=== PATIENT | male | born 1975 | race American Indian/Alaskan Native ===

== ENCOUNTER 2020-05-07 06:15 | Observation (INO) | payer OTHER ==
--- NOTE | 2020-05-07 08:08 | Emergency Department Report ---
ED Male HPI - General Chief complaint: Urogenital-Male Time Seen by Provider: 05/07/20 08:05 Source: patient Mode of arrival: Ambulatory Limitations: No Limitations - History of Present Illness Initial comments: Patient is a 45-year-old obese -Filipino male who comes to the ER complaining of testicular pain. He states that he has had this for several days but thought that it was just swelling and it would go down. He denies any penile discharge or dysuria. He has no back pain or abdominal pain. No nausea vomiting or diarrhea. Patient states that he has never had this before. He has taken [id number] medications at home with no relief. The pain is a constant dull sensation in his scrotum. Patient denies any trauma. Patient has no hypotension, tachycardia or fever. MD Complaint: testicle swelling -: Gradual, days(s) Radiation: none Severity: moderate Consistency: constant Worsens with: none denies other symptoms - Related Data Previous Rx's Medication Instructions Recorded Last Taken Type Ibuprofen [Motrin 800 MG tab] 800 mg PO Q8H #45 tablet 05/07/20 Unknown Rx cephALEXin [Keflex] 500 mg PO Q6H #28 cap 05/07/20 Unknown Rx Allergies Allergy/AdvReac Type Severity Reaction Status Date / Time No Known Allergies Allergy Verified 06/20/13 10:54 ED Review of Systems ROS: Stated complaint: Other details as noted in HPI Comment: All other systems reviewed and negative ED Past Medical Hx - Past Medical History Previous Medical History?: Yes Hx Hypertension: Yes Hx Asthma: Yes Additional medical history: Tetanus status 2 years - Surgical History Past Surgical History?: Yes Additional Surgical History: hernia repair - Family History Family history: no significant - Social History Smoking Status: Never Smoker Substance Use Type: None - Medications Home Medications: Home Medications Medication Instructions Recorded Confirmed Last Taken Type Ibuprofen [Motrin 800 MG tab] 800 mg PO Q8H #45 tablet 05/07/20 Unknown Rx cephALEXin [Keflex] 500 mg PO Q6H #28 cap 05/07/20 Unknown Rx ED Physical Exam - General Limitations: No Limitations General appearance: alert, in no apparent distress - Head Head exam: Present: atraumatic, normocephalic - Eye Eye exam: Present: normal appearance - ENT ENT exam: Present: mucous membranes moist - Neck Neck exam: Present: normal inspection - Respiratory Respiratory exam: Present: normal lung sounds bilaterally. Absent: respiratory distress - Cardiovascular Cardiovascular Exam: Present: regular rate, normal rhythm, other (Heart rate on provider exam 90, patient morbidly obese this is probably a normal heart rate for him. He has no fever). Absent: systolic murmur, diastolic murmur, rubs, gallop - GI/Abdominal GI/Abdominal exam: Present: soft, normal bowel sounds - Rectal Rectal exam: Present: deferred - exam: Present: scrotal swelling. Absent: urethral discharge, vertical testicular lie External exam: Present: erythema, swelling, other (No abscess). Absent: lesions, lacerations, ecchymosis, bleeding - Extremities Exam Extremities exam: Present: normal inspection - Back Exam Back exam: Present: normal inspection - Neurological Exam Neurological exam: Present: alert, oriented X3 - Psychiatric Psychiatric exam: Present: normal affect, normal mood - Skin Skin exam: Present: warm, dry, intact, normal color. Absent: rash ED Course Vital Signs 05/07/20 06:17 Temperature 98.2 F Pulse Rate 105 H Respiratory 20 Rate Blood Pressure 182/97 [Right] O2 Sat by Pulse 96 Oximetry ED Medical Decision Making - Radiology Data Radiology results: report reviewed, image reviewed Ultrasound negative for torsion - Medical Decision Making Ultrasound noted. On exam scrotum is enlarged. Skin is thickened. It is edematous. There are no lesions. There is no penile discharge. There is no abscess or area of flatulence. Patient was medicated with IM Rocephin. Patient has no bilateral lower extremity edema. He has no JVD. He has no history of cardiac disease. He denies chest pain. Patient denies any abdominal pain or dysuria. He denies any back pain. He denies any penile discharge or concern for STI. Patient was educated on discharge plan of care including medications, activity diet and follow-up. He verbalizes understanding of the need to follow-up given the location of cellulitis. Patient has been encouraged to work on his weight for a feel that this is part of the reason why he is having cellulitis in his periarea. Patient is morbidly obese. Lab Results 05/07/20 Range/Units Unknown Urine Color Straw (Yellow) Urine Turbidity Clear (Clear) Urine pH 6.0 (5.0-7.0) Ur Specific [place] 1.006 (1.003-1.030) Urine Protein 100 mg/dl (Negative) mg/dL Urine Glucose (UA) Neg (Negative) mg/dL Urine Ketones Neg (Negative) mg/dL Urine Blood Neg (Negative) Urine Nitrite Neg (Negative) Urine Bilirubin Neg (Negative) Urine Urobilinogen < 2.0 (<2.0) mg/dL Ur Leukocyte Esterase Neg (Negative) Urine WBC (Auto) < 1.0 (0.0-6.0) /HPF Urine RBC (Auto) 1.0 (0.0-6.0) /HPF Vital Signs 05/07/20 06:17 Temperature 98.2 F Pulse Rate 105 H Respiratory 20 Rate Blood Pressure 182/97 [Right] O2 Sat by Pulse 96 Oximetry - Differential Diagnosis Rule out testicular torsion or other testicular abnormalities Critical care attestation.: If time is entered above; I have spent that time in minutes in the direct care of this critically ill patient, excluding procedure time. ED Disposition Clinical Impression: Cellulitis of scrotum, Morbid obesity Disposition: TO HOME OR SELFCARE Is pt being admited?: No Does the pt Need Aspirin: No Condition: Stable Instructions: Cellulitis, Adult, [id number], Testicular Self-Exam, [id number] Additional Instructions: meds as ordered low salt and fat diet hydrate well with water motrin or tylenol for pain follow up with PCP for recheck in 48 hours to be sure you are getting better activity as tolerated Prescriptions: cephALEXin [Keflex] 500 mg PO Q6H #28 cap Ibuprofen [Motrin 800 MG tab] 800 mg PO Q8H #45 tablet Referrals: [facility] [Other] - 3-5 Days ANDREI GRAVES MD [Staff Physician] - 3-5 Days Time of Disposition: 09:48
[2020-05-07 08:40] LABS: Bilirubin,Urine NEG (Negative); Blood,Urine NEG (Negative); Color,Urine Straw (Yellow); Urobilinogen,Urine < 2.0 mg/dL (<2.0); WBC,Urine < 1.0 /HPF (0.0-6.0)
--- NOTE | 2020-05-07 09:44 | Ultrasound Report ---
ULTRASOUND SCROTUM INDICATION / CLINICAL INFORMATION: scrotal pain. COMPARISON: None available. FINDINGS -- RIGHT TESTIS: Size = 4.9 x 3.2 x 3.0 cm. - Appearance: No significant abnormality. - Cyst or Mass: None. - Color Doppler Flow: No significant abnormality. EPIDIDYMIS: No significant abnormality. HYDROCELE: Small right hydrocele. VARICOCELE: None demonstrated. FINDINGS -- LEFT TESTIS: Size = 4.2 x 2.7 x 2.8 cm. - Appearance: No significant abnormality. - Cyst or Mass: None. - Color Doppler Flow: No significant abnormality. EPIDIDYMIS: No significant abnormality. HYDROCELE: None. VARICOCELE: None demonstrated. ADDITIONAL FINDINGS: There is significant thickening and edema noted of the scrotal soft tissues with mild hyperemia. No focal abscess noted. IMPRESSION: 1. Infectious/inflammatory changes of the scrotal soft tissues consistent with cellulitis. 2. Small right hydrocele. Signer Name: Hank Bradley MD Signed: 05/07/2020 9:40 AM Workstation Name: [id number]
[2020-05-07] MEDS ORDERED: LIDOCAINE-MPF (1%) 10 MG/1 ML VIAL 5 ML INFILTRATI ONE (09:45)
[2020-05-07] MEDS ORDERED: traMADol 50 MG TAB PO ONE (09:51)
[2020-05-07 11:16] VITALS: BP 168/105
--- NOTE | 2020-05-07 11:27 | XRay Report ---
CHEST 2 VIEWS INDICATION / CLINICAL INFORMATION: sob. COMPARISON: None available. FINDINGS: SUPPORT DEVICES: None. HEART / MEDIASTINUM: Moderately enlarged LUNGS / PLEURA: Mild increased interstitial markings No pneumothorax. ADDITIONAL FINDINGS: No significant additional findings. IMPRESSION: 1. Mild CHF Signer Name: Eb Casas MD Signed: 05/07/2020 11:22 AM Workstation Name: [id number]
[2020-05-07] MEDS ORDERED: FUROSEMIDE 20 MG TAB PO ONE (11:30)
--- NOTE | 2020-05-07 11:31 | Event Note ---
Date: 05/07/20 ADDENDUM On obtaining discharge vital signs patient sat was noted to be in the high 70s. At the time patient was sitting upright at the side of the bed. He denied any chest pain or shortness of breath. Patient states that he has not had any chest pain. He states that he has some shortness of breath but he said that anybody 1 that was 400 pounds, this is per the patient. Patient denies any recent chills or shortness of breath. He denies abdominal pain. Denies nausea vomiting diarrhea. Patient denies that his legs are swollen he said that they always look like this. Patient is 400 pounds and his legs are large to me it looks like he has some pitting edema but patient says this is baseline. 6 ft 400 pounds per pt Patient is morbidly obese and has asthma. His asthma has been well controlled in fact per the patient has not been giving him any problems. Patient denies a history of sleep apnea. Patient takes no medications at home. He denies any cardiac history. He denies any use of illicit drugs. Mother and father are alive without cardiac disease. Patient states he has never been told that he had any problems with his heart. Per the EMR patient has hypertension but patient denies this. He has no primary care doctor. He denies any surgeries. X-ray was obtained and labs were ordered given hypoxia. X-ray noted to be without consolidation or infiltrate suggestive of pneumonia or Covid. Per radiology read they are concerned for mild congestive heart failure. Labs have been noted. BNP elevated. Creatinine 1.2 Serial 12 leads and troponins ordered. Thyroid study pending. Patient was given 20 of p.o. Lasix with no urine output. Creatinine 1.2. Given no response to the p.o. Lasix, and there is Lasix nohelia patient I am repeating his Lasix 40 mg IV x1. A repeat B MP has been ordered to evaluate his potassium which resulted at 5.3 1350 SAT by provider 82 NC ordered. DuoNeb provided. Patient has minimal bibasilar wheezing. 1400 cardiology paged-noted cardiology recommends inpatient evaluation for new onset heart failure. Recommend echocardiogram. Pt has been updated on need for admit. [address] Reza [address] Dr. Umaña contacted for hospital admission for new onset CHF and ongoing antibiotics for his sacral cellulitis (see ultrasound report).
[2020-05-07 13:03] LABS: Mean Corpuscular HGB Conc 29 % (32-34); Mean Corpuscular Volume 76 fl (84-94); Platelet Count 241 K/mm3 (140-440); Red Blood Count 7.22 M/mm3 (3.65-5.03)
[2020-05-07 13:05] LABS: Red Cell Distribution Width 21.2 % (13.2-15.2)
[2020-05-07 13:26] LABS: Alanine Aminotransferase 45 units/L (7-56); Albumin 3.1 g/dL (3.9-5); BUN/Creatinine Ratio 15; Blood Urea Nitrogen 18 mg/dL (9-20); Calcium 8.8 mg/dL (8.4-10.2); Hemolysis Index 14
[2020-05-07] MEDS ORDERED: ALBUTEROL 2.5 MG/3 ML NEBU IH ONE (13:37)
[2020-05-07] MEDS ORDERED: FUROSEMIDE 40 MG/4 ML INJ IV ONE (14:08)
[2020-05-07] MEDS ORDERED: ASPIRIN 325 MG TAB PO ONE (14:28)
[2020-05-07 15:19] LABS: BUN/Creatinine Ratio 15; Blood Urea Nitrogen 20 mg/dL (9-20); Calcium 8.4 mg/dL (8.4-10.2); Hemolysis Index 83
[2020-05-07] MEDS ORDERED: ASPIRIN 325 MG TAB ONE (18:20)
== END 2020-05-07 20:44 | disposition short-term general hospital (02) ==
LOC: ED 06:15 → 4A 14:31
PROVIDERS: ADMIT Internal Medicine; ATTEND Internal Medicine
DX: N49.2 Inflammatory disorders of scrotum (principal); E66.01 Morbid (severe) obesity due to excess calories; I11.0 Hypertensive heart disease with heart failure; I50.9 Heart failure, unspecified; J45.909 Unspecified asthma, uncomplicated; R09.02 Hypoxemia; Z98.890 Other specified postprocedural states; Z79.899 Other long term (current) drug therapy; Z68.43 Body mass index [BMI] 50.0-59.9, adult
CPT/HCPCS: 36415; 71046; 80053; 81001; 83735; 83880; 84100; 84436; 84443; 84484; 85027; 85379; 93005; 93975; 96372; 96374; 99284; G0378; J0696; J1940; 80048

== ENCOUNTER 2020-05-25 17:05 | Inpatient (IN) | payer OTHER ==
--- NOTE | 2020-05-25 17:28 | Emergency Department Report ---
Blank Doc - Documentation Documentation: 45-year-old male that presents with worsening SOB. This initial assessment/diagnostic orders/clinical plan/treatment(s) is/are subject to change based on patient's health status, clinical progression and re- assessment by fellow clinical providers in the ED. Further treatment and workup at subsequent clinical providers discretion. Patient/guardians urged not to elope from the ED as their condition may be serious if not clinically assessed and managed. Initial orders include: 1- Patient sent to MAIN ED for further evaluation and treatment 2- patient placed on nonbreather 10L 3- cardiac workup
--- NOTE | 2020-05-25 18:11 | XRay Report ---
CHEST 2 VIEWS INDICATION / CLINICAL INFORMATION: Chest pain. COMPARISON: 05/07/2020 FINDINGS: SUPPORT DEVICES: None. HEART / MEDIASTINUM: Stable mild cardiomegaly. LUNGS / PLEURA: Mild interstitial edema. No significant effusion. No pneumothorax. ADDITIONAL FINDINGS: No significant additional findings. IMPRESSION: 1. Mild cardiomegaly and mild interstitial pulmonary edema. Signer Name: Raúl Valdivia MD Signed: 05/25/2020 6:07 PM Workstation Name: [id number]
[2020-05-25 18:30] LABS: Basophils # (Auto) 0.1 K/mm3 (0.0-0.1); Basophils % (Auto) 0.8 % (0.0-1.8); Eosinophils # (Auto) 0.1 K/mm3 (0.0-0.4); Eosinophils % (Auto) 1.1 % (0.0-4.3); Lymphocytes # (Auto) 0.9 K/mm3 (1.2-5.4); Mean Corpuscular HGB Conc 29 % (32-34); Mean Corpuscular Volume 78 fl (84-94); Monocytes # (Auto) 0.9 K/mm3 (0.0-0.8); Monocytes % (Auto) 12.2 % (0.0-7.3); Platelet Count 416 K/mm3 (140-440); Red Blood Count 6.27 M/mm3 (3.65-5.03)
[2020-05-25 18:32] LABS: Alanine Aminotransferase 28 units/L (7-56); BUN/Creatinine Ratio 18; Blood Urea Nitrogen 16 mg/dL (9-20); Calcium 8.1 mg/dL (8.4-10.2); Hemolysis Index 6
[2020-05-25 18:37] LABS: Hematocrit 48.9 % (35.5-45.6); Hemoglobin 14.3 gm/dl (11.8-15.2); Red Cell Distribution Width 22.9 % (13.2-15.2)
[2020-05-25 18:44] LABS: INR 1.08 (0.87-1.13)
[2020-05-25 18:45] LABS: Partial Thromboplastin Time 26.3 Sec. (24.2-36.6)
--- NOTE | 2020-05-26 00:57 | Emergency Department Report ---
ED General Adult HPI - General Chief complaint: Dyspnea/Respdistress Stated complaint: LAZARA/SOB Time Seen by Provider: 05/25/20 17:27 Source: patient Mode of arrival: Ambulatory Limitations: No Limitations - History of Present Illness Initial comments: Patient presents to the emergency department with a chief complaint of shortness of breath that has been present for the last 2 weeks. Patient states he was recently hospitalized at [facility] for fluid overload was placed on Lasix. Patient complains of a increase shortness of breath with exertion or when laying flat. Upon the patient's arrival to the emergency department his O2 sats was 74% on room air. O2 sats are responsive to nonrebreather with O2 sats increasing to 100%. Patient states he has had a significant weight gain in the last week due to increased fluid. Patient denies chest pain, abdominal pain, or headache. -: Gradual Severity scale (0 -10): 0 Consistency: constant Improves with: rest Worsens with: movement Associated Symptoms: denies other symptoms Treatments Prior to Arrival: none - Related Data Allergies Allergy/AdvReac Type Severity Reaction Status Date / Time No Known Allergies Allergy Verified 06/20/13 10:54 ED Review of Systems ROS: Stated complaint: LAZARA/SOB Other details as noted in HPI Constitutional: denies: chills, fever Eyes: denies: eye pain, eye discharge, vision change ENT: denies: ear pain, throat pain Respiratory: shortness of breath. denies: cough, wheezing Cardiovascular: denies: chest pain, palpitations Endocrine: no symptoms reported Gastrointestinal: denies: abdominal pain, nausea, diarrhea Genitourinary: denies: urgency, dysuria Musculoskeletal: denies: back pain, joint swelling, arthralgia Skin: denies: rash, lesions Neurological: denies: headache, weakness, paresthesias Psychiatric: denies: anxiety, depression Hematological/Lymphatic: denies: easy bleeding, easy bruising ED Past Medical Hx - Past Medical History Previous Medical History?: Yes Hx Hypertension: Yes Hx Asthma: Yes Additional medical history: Tetanus status 2 years - Surgical History Additional Surgical History: hernia repair - Social History Smoking Status: Never Smoker Substance Use Type: None ED Physical Exam - General Limitations: No Limitations General appearance: alert, in no apparent distress - Head Head exam: Present: atraumatic, normocephalic - Eye Eye exam: Present: normal appearance - ENT ENT exam: Present: mucous membranes moist - Neck Neck exam: Present: normal inspection - Respiratory Respiratory exam: Present: rales. Absent: respiratory distress - Cardiovascular Cardiovascular Exam: Present: normal rhythm, tachycardia. Absent: systolic murmur, diastolic murmur, rubs, gallop - GI/Abdominal GI/Abdominal exam: Present: soft, normal bowel sounds. Absent: distended, tenderness - Rectal Rectal exam: Present: deferred - Extremities Exam Extremities exam: Present: other (Pitting edema to the bilateral lower extremities) - Back Exam Back exam: Present: normal inspection - Neurological Exam Neurological exam: Present: alert, oriented X3 - Psychiatric Psychiatric exam: Present: normal affect, normal mood - Skin Skin exam: Present: warm, dry, intact, normal color. Absent: rash ED Course Vital Signs 05/25/20 05/25/20 05/26/20 17:10 17:25 00:13 Temperature 98.6 F 98.7 F Pulse Rate 108 H 110 H Respiratory 20 22 Rate Blood Pressure 174/92 Blood Pressure 152/84 [Right] O2 Sat by Pulse 74 L 97 72 L Oximetry ED Medical Decision Making - Lab Data Result diagrams: 05/25/20 17:38 05/25/20 17:38 Lab Results 05/25/20 05/25/20 05/25/20 Range/Units 17:38 17:38 17:38 WBC 7.5 (4.5-11.0) K/mm3 RBC 6.27 H (3.65-5.03) M/mm3 Hgb 14.3 (11.8-15.2) gm/dl Hct 48.9 H (35.5-45.6) % MCV 78 L (84-94) fl MCH 23 L (28-32) pg MCHC 29 L (32-34) % RDW 22.9 H (13.2-15.2) % Plt Count 416 (140-440) K/mm3 Lymph % (Auto) 12.0 L (13.4-35.0) % [place] % (Auto) 12.2 H (0.0-7.3) % Eos % (Auto) 1.1 (0.0-4.3) % Baso % (Auto) 0.8 (0.0-1.8) % Lymph # (Auto) 0.9 L (1.2-5.4) K/mm3 [place] # (Auto) 0.9 H (0.0-0.8) K/mm3 Eos # (Auto) 0.1 (0.0-0.4) K/mm3 Baso # (Auto) 0.1 (0.0-0.1) K/mm3 Seg Neutrophils % 73.9 H (40.0-70.0) % Seg Neutrophils # 5.5 (1.8-7.7) K/mm3 PT 13.9 (12.2-14.9) Sec. INR 1.08 (0.87-1.13) APTT 26.3 (24.2-36.6) Sec. Sodium 141 (137-145) mmol/L Potassium 3.8 (3.6-5.0) mmol/L Chloride 98.4 (98-107) mmol/L Carbon Dioxide 39 H (22-30) mmol/L Anion Gap 7 mmol/L BUN 16 (9-20) mg/dL Creatinine 0.9 (0.8-1.3) mg/dL Estimated GFR > 60 ml/min BUN/Creatinine Ratio 18 % Glucose 101 H (75-100) mg/dL Calcium 8.1 L (8.4-10.2) mg/dL Total Bilirubin 0.50 (0.1-1.2) mg/dL AST 23 (5-40) units/L ALT 28 (7-56) units/L Alkaline Phosphatase 85 (35-129) units/L Troponin T < 0.010 (0.00-0.029) ng/mL NT-Pro-B Natriuret Pep 1338 H (0-450) pg/mL Total Protein 5.7 L (6.3-8.2) g/dL Albumin 3.0 L (3.9-5) g/dL Albumin/Globulin Ratio 1.1 % /28/20 Range/Units 20:40 WBC (4.5-11.0) K/mm3 RBC (3.65-5.03) M/mm3 Hgb (11.8-15.2) gm/dl Hct (35.5-45.6) % MCV (84-94) fl MCH (28-32) pg MCHC (32-34) % RDW (13.2-15.2) % Plt Count (140-440) K/mm3 Lymph % (Auto) (13.4-35.0) % [place] % (Auto) (0.0-7.3) % Eos % (Auto) (0.0-4.3) % Baso % (Auto) (0.0-1.8) % Lymph # (Auto) (1.2-5.4) K/mm3 [place] # (Auto) (0.0-0.8) K/mm3 Eos # (Auto) (0.0-0.4) K/mm3 Baso # (Auto) (0.0-0.1) K/mm3 Seg Neutrophils % (40.0-70.0) % Seg Neutrophils # (1.8-7.7) K/mm3 PT (12.2-14.9) Sec. INR (0.87-1.13) APTT (24.2-36.6) Sec. Sodium (137-145) mmol/L Potassium (3.6-5.0) mmol/L Chloride (98-107) mmol/L Carbon Dioxide (22-30) mmol/L Anion Gap mmol/L BUN (9-20) mg/dL Creatinine (0.8-1.3) mg/dL Estimated GFR ml/min BUN/Creatinine Ratio % Glucose (75-100) mg/dL Calcium (8.4-10.2) mg/dL Total Bilirubin (0.1-1.2) mg/dL AST (5-40) units/L ALT (7-56) units/L Alkaline Phosphatase (35-129) units/L Troponin T < 0.010 (0.00-0.029) ng/mL NT-Pro-B Natriuret Pep (0-450) pg/mL Total Protein (6.3-8.2) g/dL Albumin (3.9-5) g/dL Albumin/Globulin Ratio % - Radiology Data Radiology results: report reviewed - Medical Decision Making Patient's O2 sats 100% on nonrebreather mask Patient given IV Lasix Contacted [facility] and spoke to emilia Lott at Critical Care Time: Yes Critical care time in (mins) excluding proc time.: 35 Critical care attestation.: If time is entered above; I have spent that time in minutes in the direct care of this critically ill patient, excluding procedure time. ED Disposition Clinical Impression: CHF (congestive heart failure), Hypoxia, Respiratory failure Disposition: OP ADMIT IP TO THIS HOSP Is pt being admited?: Yes Does the pt Need Aspirin: Yes Condition: Fair Referrals: [facility] [Other] - 3-5 Days
[2020-05-26] MEDS ORDERED: FUROSEMIDE 40 MG/4 ML INJ IV ONE (01:01)
[2020-05-26] MEDS ORDERED: PIPERACIL/TAZOBACTA 4.5/NS 100 4.5 GM/100 ML VIAL IV ONE (01:15)
[2020-05-26] MEDS ORDERED: MORPHINE 2 MG/1 ML INJ IV PRN (01:22)
[2020-05-26] MEDS ORDERED: NITROGLYCERIN 0.4 MG TAB SUBL SL PRN (01:22)
[2020-05-26] MEDS ORDERED: ALBUTEROL 2.5 MG/3 ML NEBU IH PRN (01:27)
[2020-05-26 01:29] LABS: Bilirubin,Urine NEG (Negative); Blood,Urine NEG (Negative); Color,Urine Yellow (Yellow); Hyaline Casts,Urine 14 /LPF; Mucus,Urine FEW /HPF
--- NOTE | 2020-05-26 01:57 | History and Physical Report ---
History of Present Illness Date of examination: 05/26/20 Date of admission: 05/26/2020 Chief complaint: Difficulty in breathing and generalized edema History of present illness: 45-year-old -Hungarian male recently diagnosed with CHF and history of hypertension, and asthma who presents to [facility] ED with complaints of shortness of breath and worsening lower extremity edema extending up to abdomen x3 to 4 days. This patient is a [facility] patient. Dr. Lott at [facility] was contacted by ED physician who has agreed to this admission. Review of chart shows patient presented to the ED on 05/07/2020 with complaints of testicular pain and testicular edema. He was noted to have an elevated BNP subsequently transferred to [facility] for further evaluation and treatment. Patient's reports since being discharged from [facility] approximately 1 week ago he has been experiencing worsening shortness of breath. He is unable to walk more than a few feet without becoming short of breath and needing to take a rest. Additionally patient complains of increased weight gain (he is not able to provide exact weight) since being discharged despite being compliant with meds. He states that he has a follow-up appointment with cardiology at [facility] sche duled for 06/02/2020. His symptoms were not improving and he could not wait until his scheduled appointment to seek medical attention. Denies chest pain, fever, chills, headache, palpitations, cough, sputum production, loss of smell, loss of taste, abdominal pain, or recent sick contacts Past History Past Medical History: other (Newly diagnosed CHF, obesity, hypertension, asthma) Past Surgical History: hernia repair Social history: single, other (Lives with mother) Family history: hypertension Medications and Allergies Allergies Allergy/AdvReac Type Severity Reaction Status Date / Time No Known Allergies Allergy Verified 06/20/13 10:54 Active Meds: Active Medications Albuterol (Albuterol 2.5 Mg/3 Ml Nebu) 2.5 mg IH Q4HRT PRN PRN Reason: Shortness Of Breath Aspirin (Aspirin 81 Mg Tab Chew) 81 mg PO QDAY [facility] Carvedilol (Carvedilol 3.125 Mg Tab) 3.125 mg PO BID [facility] Enoxaparin Sodium (Enoxaparin 40 Mg/0.4 Ml Inj) 40 mg SUB-Q QDAY@2200 [facility]; Protocol Furosemide (Furosemide 40 Mg/4 Ml Inj) 40 mg IV BID@0600,1800 [facility] Lisinopril (Lisinopril 10 Mg Tab) 10 mg PO QDAY [facility] Morphine Sulfate (Morphine 2 Mg/1 Ml Inj) 2 mg IV Q5MIN PRN PRN Reason: Chest Pain unrelieved by NTG Nitroglycerin (Nitroglycerin 0.4 Mg Tab Subl) 0.4 mg SL .Q5MIN PRN PRN Reason: Chest Pain Potassium Chloride (Potassium Chloride Er 10 Meq Tab) 10 meq PO QDAY [facility] Review of Systems All systems: negative (Except as noted in HPI) Exam - Physical Exam Narrative exam: Physical exam General appearance: Present: No acute distress, alert and oriented 3, pleasant obese male - EENT Eyes: Present: PERRL, EOM intact ENT: hearing intact, normal dentition - Neck Neck: Present: supple, normal ROM - Respiratory Respiratory effort: Non-labored Respiratory: Diminished bases with faint bibasilar crackles, on nonrebreather mask - Cardiovascular Heart rate: 80 (bpm) Rhythm: Sinus sinus Heart Sounds: Present: S1 & S2. Absent: rub, click - Extremities Extremities: no ischemia, pulses intact, nonpitting edema extending up to abdomen/thoracic region - Peripheral Assessment Peripheral Pulses: within normal limits - Abdominal General gastrointestinal: non-tender, normal bowel sounds - Integumentary Integumentary: Present: warm, dry - Musculoskeletal Musculoskeletal: Able to move all extremities -Neurological Neurological: CN II-XII intact - Psychiatric Psychiatric: Appropriate for situation ,cooperative - Constitutional Vitals: Temp Pulse Resp BP Pulse Ox 98.7 F 110 H 22 174/92 72 L 05/26/20 00:13 05/26/20 00:13 05/26/20 00:13 05/26/20 00:13 05/26/20 00:13 HEART Score - HEART Score Troponin: WBC 7.5 K/mm3 (4.5-11.0) 05/25/20 17:38 RBC 6.27 M/mm3 (3.65-5.03) H 05/25/20 17:38 Hgb 14.3 gm/dl (11.8-15.2) 05/25/20 17:38 Hct 48.9 % (35.5-45.6) H 05/25/20 17:38 MCV 78 fl (84-94) L 05/25/20 17:38 MCH 23 pg (28-32) L 05/25/20 17:38 MCHC 29 % (32-34) L 05/25/20 17:38 RDW 22.9 % (13.2-15.2) H 05/25/20 17:38 Plt Count 416 K/mm3 (140-440) 05/25/20 17:38 Lymph % (Auto) 12.0 % (13.4-35.0) L 05/25/20 17:38 [facility] % (Auto) 12.2 % (0.0-7.3) H 05/25/20 17:38 Eos % (Auto) 1.1 % (0.0-4.3) 05/25/20 17:38 Baso % (Auto) 0.8 % (0.0-1.8) 05/25/20 17:38 Lymph # (Auto) 0.9 K/mm3 (1.2-5.4) L 05/25/20 17:38 [facility] # (Auto) 0.9 K/mm3 (0.0-0.8) H 05/25/20 17:38 Eos # (Auto) 0.1 K/mm3 (0.0-0.4) 05/25/20 17:38 Baso # (Auto) 0.1 K/mm3 (0.0-0.1) 05/25/20 17:38 Seg Neutrophils % 73.9 % (40.0-70.0) H 05/25/20 17:38 Seg Neutrophils # 5.5 K/mm3 (1.8-7.7) 05/25/20 17:38 PT 13.9 Sec. (12.2-14.9) 05/25/20 17:38 INR 1.08 (0.87-1.13) 05/25/20 17:38 APTT 26.3 Sec. (24.2-36.6) 05/25/20 17:38 Sodium 141 mmol/L (137-145) 05/25/20 17:38 Potassium 3.8 mmol/L (3.6-5.0) 05/25/20 17:38 Chloride 98.4 mmol/L (98-107) 05/25/20 17:38 Carbon Dioxide 39 mmol/L (22-30) H 05/25/20 17:38 Anion Gap 7 mmol/L 05/25/20 17:38 BUN 16 mg/dL (9-20) 05/25/20 17:38 Creatinine 0.9 mg/dL (0.8-1.3) 05/25/20 17:38 Estimated GFR > 60 ml/min 05/25/20 17:38 BUN/Creatinine Ratio 18 % 05/25/20 17:38 Glucose 101 mg/dL (75-100) H 05/25/20 17:38 Calcium 8.1 mg/dL (8.4-10.2) L 05/25/20 17:38 Total Bilirubin 0.50 mg/dL (0.1-1.2) 05/25/20 17:38 AST 23 units/L (5-40) 05/25/20 17:38 ALT 28 units/L (7-56) 05/25/20 17:38 Alkaline Phosphatase 85 units/L (35-129) 05/25/20 17:38 Troponin T < 0.010 ng/mL (0.00-0.029) 05/25/20 20:40 NT-Pro-B Natriuret Pep 1338 pg/mL (0-450) H 05/25/20 17:38 Total Protein 5.7 g/dL (6.3-8.2) L 05/25/20 17:38 Albumin 3.0 g/dL (3.9-5) L 05/25/20 17:38 Albumin/Globulin Ratio 1.1 % 05/25/20 17:38 Results - Labs CBC & Chem 7: 05/25/20 17:38 05/25/20 17:38 Labs: Laboratory Last Values WBC 7.5 K/mm3 (4.5-11.0) 05/25/20 17:38 RBC 6.27 M/mm3 (3.65-5.03) H 05/25/20 17:38 Hgb 14.3 gm/dl (11.8-15.2) 05/25/20 17:38 Hct 48.9 % (35.5-45.6) H 05/25/20 17:38 MCV 78 fl (84-94) L 05/25/20 17:38 MCH 23 pg (28-32) L 05/25/20 17:38 MCHC 29 % (32-34) L 05/25/20 17:38 RDW 22.9 % (13.2-15.2) H 05/25/20 17:38 Plt Count 416 K/mm3 (140-440) 05/25/20 17:38 Lymph % (Auto) 12.0 % (13.4-35.0) L 05/25/20 17:38 [facility] % (Auto) 12.2 % (0.0-7.3) H 05/25/20 17:38 Eos % (Auto) 1.1 % (0.0-4.3) 05/25/20 17:38 Baso % (Auto) 0.8 % (0.0-1.8) 05/25/20 17:38 Lymph # (Auto) 0.9 K/mm3 (1.2-5.4) L 05/25/20 17:38 [facility] # (Auto) 0.9 K/mm3 (0.0-0.8) H 05/25/20 17:38 Eos # (Auto) 0.1 K/mm3 (0.0-0.4) 05/25/20 17:38 Baso # (Auto) 0.1 K/mm3 (0.0-0.1) 05/25/20 17:38 Seg Neutrophils % 73.9 % (40.0-70.0) H 05/25/20 17:38 Seg Neutrophils # 5.5 K/mm3 (1.8-7.7) 05/25/20 17:38 PT 13.9 Sec. (12.2-14.9) 05/25/20 17:38 INR 1.08 (0.87-1.13) 05/25/20 17:38 APTT 26.3 Sec. (24.2-36.6) 05/25/20 17:38 Sodium 141 mmol/L (137-145) 05/25/20 17:38 Potassium 3.8 mmol/L (3.6-5.0) 05/25/20 17:38 Chloride 98.4 mmol/L (98-107) 05/25/20 17:38 Carbon Dioxide 39 mmol/L (22-30) H 05/25/20 17:38 Anion Gap 7 mmol/L 05/25/20 17:38 BUN 16 mg/dL (9-20) 05/25/20 17:38 Creatinine 0.9 mg/dL (0.8-1.3) 05/25/20 17:38 Estimated GFR > 60 ml/min 05/25/20 17:38 BUN/Creatinine Ratio 18 % 05/25/20 17:38 Glucose 101 mg/dL (75-100) H 05/25/20 17:38 Calcium 8.1 mg/dL (8.4-10.2) L 05/25/20 17:38 Total Bilirubin 0.50 mg/dL (0.1-1.2) 05/25/20 17:38 AST 23 units/L (5-40) 05/25/20 17:38 ALT 28 units/L (7-56) 05/25/20 17:38 Alkaline Phosphatase 85 units/L (35-129) 05/25/20 17:38 Troponin T < 0.010 ng/mL (0.00-0.029) 05/25/20 20:40 NT-Pro-B Natriuret Pep 1338 pg/mL (0-450) H 05/25/20 17:38 Total Protein 5.7 g/dL (6.3-8.2) L 05/25/20 17:38 Albumin 3.0 g/dL (3.9-5) L 05/25/20 17:38 Albumin/Globulin Ratio 1.1 % 05/25/20 17:38 Urine Color Yellow (Yellow) 05/26/20 Unknown Urine Turbidity Clear (Clear) 05/26/20 Unknown Urine pH 6.0 (5.0-7.0) 05/26/20 Unknown Ur Specific [place] 1.017 (1.003-1.030) 05/26/20 Unknown Urine Protein 100 mg/dl mg/dL (Negative) 05/26/20 Unknown Urine Glucose (UA) Neg mg/dL (Negative) 05/26/20 Unknown Urine Ketones Neg mg/dL (Negative) 05/26/20 Unknown Urine Blood Neg (Negative) 05/26/20 Unknown Urine Nitrite Neg (Negative) 05/26/20 Unknown Urine Bilirubin Neg (Negative) 05/26/20 Unknown Urine Urobilinogen 2.0 mg/dL (<2.0) 05/26/20 Unknown Ur Leukocyte Esterase Neg (Negative) 05/26/20 Unknown Urine WBC (Auto) 4.0 /HPF (0.0-6.0) 05/26/20 Unknown Urine RBC (Auto) 1.0 /HPF (0.0-6.0) 05/26/20 Unknown U Epithel Cells (Auto) < 1.0 /HPF (0-13.0) 05/26/20 Unknown Hyaline Casts 14 /LPF 05/26/20 Unknown Urine Mucus Few /HPF 05/26/20 Unknown - Imaging and Cardiology Chest x-ray: report reviewed (mild cardiomegaly and mild interstitial pulmonary edema) Elliott/IV: IV Catheter Type [Left INT / Saline Lock Antecubital] Assessment and Plan Assessment and plan: 45-year-old -Hungarian male recently diagnosed with CHF and history of hypertension, and asthma who presents to [facility] ED with complaints of shortness of breath and worsening lower extremity edema extending up to abdomen x3 to 4 days. Acute exacerbation CHF -Recently diagnosed (approx 2weeks ago) -BNP elevated at 1338 -Troponin negative x2 -CXR shows mild cardiomegaly and mild pulmonary edema -Patient has anasarca -Start IV Lasix twice a day -Echo pending (pt is uncertain if Echo was done at [facility], if able to obtain Echo results, may d/c pending Echo) -On ASA, BB, ELIJAH Acute hypoxic respiratory failure -No Baseline home oxygen requirements -Saturation of 74% on room air -ABG pending -Currently on supplemental -Monitor saturations -Continue supplemental oxygen wean as tolerated Suspected Covid infection -Given patient's presentation and recent hospitalization I am unable to rule out Covid at this time -D-dimer pending -Covid swab pending HTN -Monitor BP -On BB and ELIJAH Asthma -History of asthma -Albuterol as needed Obesity -BMI 49.8 -Diet and lifestyle modifications -May benefit from OP weight mgmt program DVT PPX -On Lovenox Advance Directives: No VTE prophylaxis?: Chemical
[2020-05-26] MEDS: FUROSEMIDE 40 MG/4 ML INJ IV SCH ×2 (07:25→17:58)
[2020-05-26] MEDS: carvediloL 3.125 MG TAB PO SCH ×2 (08:57→16:57)
[2020-05-26] MEDS: ASPIRIN 81 MG TAB CHEW PO SCH (10:10)
[2020-05-26] MEDS: LISINOPRIL 10 MG TAB PO SCH (10:16)
[2020-05-26] MEDS: POTASSIUM CHLORIDE ER 10 MEQ TAB PO SCH (12:06)
[2020-05-26] MEDS ORDERED: IPRATROPIUM/ALBUTEROL SULFATE 3 ML AMPUL.NEB IH PRN (18:27)
--- NOTE | 2020-05-26 18:54 | Event Note ---
Date: 05/26/20 Patient reevaluated in the morning and evening. Patient is hypoxic and 100% nonrebreather. ABG was significant for hypercarbia. Patient had echocardiogram with normal ejection fraction. Patient is morbidly obese. Patient was initiated on Solu-Medrol 125 every 8 hours. Patient may be having severe pulmonary hypertension causing the bilateral lower extremity edema. Changed to inpatient. Patient also initiated on IV Levaquin
[2020-05-26] MEDS: ENOXAPARIN 40 MG/0.4 ML INJ SUB-Q SCH (21:33)
[2020-05-26] MEDS: IPRATROPIUM/ALBUTEROL SULFATE 3 ML AMPUL.NEB IH SCH (22:00)
[2020-05-26] MEDS: methylPREDNISolone Sod Succinate 125 MG/2 ML INJ IV SCH (22:32)
[2020-05-27] MEDS: methylPREDNISolone Sod Succinate 125 MG/2 ML INJ IV SCH ×3 (07:05→21:59)
[2020-05-27] MEDS: FUROSEMIDE 40 MG/4 ML INJ IV SCH ×2 (07:06→17:55)
[2020-05-27] MEDS: IPRATROPIUM/ALBUTEROL SULFATE 3 ML AMPUL.NEB IH SCH ×3 (07:48→21:11)
[2020-05-27] MEDS: carvediloL 3.125 MG TAB PO SCH ×2 (08:00→17:55)
--- NOTE | 2020-05-27 09:13 | Consultation ---
History of Present Illness Consult date: 05/27/20 Requesting physician: SUZETTE GUERRERO Consult reason: congestive heart failure History of present illness: The pt is a 45 YO male [place] pt with a past medical history of asthma, HFpEF, cor pulmonale, suspected SHANNAN, OSH, morbid obesity. He is previously unknown to our practice. He presented with c/o progressively worsening SOB, orthopnea, NATH, weight gain and generalized swelling for the past 2 weeks. Of note, pt was di scharged from [facility] on 05/13/2020 following eval/management of HFpEF and cor pulmonale. He underwent tte at [facility] on 05/08/2020 which showed EF 60%, severely dilated RA, trivial pericardial effusion, mild to mod TR, mod to severely reduced RV systolic function, RVSP 62.6mmHg. Per [facility] discharge summary, pt qualified for home O2 and OP RHC was recommended, covid testing was negative. Pt was discharged home on PO lasix and coreg, although pt reports he was not discharged home on any medications and thus has not taken any prescription medications since discharge. Pt denies any chest pain, palpitations, n/v, diaphoresis, dizziness or syncope. Past History Past Medical History: other (as per HPI) Past Surgical History: hernia repair Social history: single, other (Lives with mother) Family history: hypertension Medications and Allergies Allergies Allergy/AdvReac Type Severity Reaction Status Date / Time No Known Allergies Allergy Verified 06/20/13 10:54 Active Meds: Active Medications Albuterol (Albuterol 2.5 Mg/3 Ml Nebu) 2.5 mg IH Q4HRT PRN PRN Reason: Shortness Of Breath Albuterol/Ipratropium (Ipratropium/Albuterol Sulfate 3 Ml Ampul.Neb) 1 ampul IH QIDRT [facility] Last Admin: 05/27/20 07:48 Dose: 1 ampul Documented by: Aspirin (Aspirin 81 Mg Tab Chew) 81 mg PO QDAY [facility] Last Admin: 05/26/20 10:10 Dose: 81 mg Documented by: Carvedilol (Carvedilol 3.125 Mg Tab) 3.125 mg PO BID@0800,1700 [facility] Last Admin: 05/26/20 16:57 Dose: 3.125 mg Documented by: Enoxaparin Sodium (Enoxaparin 40 Mg/0.4 Ml Inj) 40 mg SUB-Q QDAY@2200 [facility]; Protocol Last Admin: 05/26/20 21:33 Dose: 40 mg Documented by: Furosemide (Furosemide 40 Mg/4 Ml Inj) 40 mg IV BID@0600,1800 [facility] Last Admin: 05/27/20 07:06 Dose: Not Given Documented by: Levofloxacin/Dextrose (Levaquin 750mg/150ml) 750 mg in 150 mls @ 100 mls/hr IV Q24H [facility]; Protocol Last Admin: 05/26/20 21:31 Dose: 100 mls/hr Documented by: Lisinopril (Lisinopril 10 Mg Tab) 10 mg PO QDAY [facility] Last Admin: 05/26/20 10:16 Dose: 10 mg Documented by: Methylprednisolone Sodium Succinate (Methylprednisolone Sod Succinate 125 Mg/2 Ml Inj) 125 mg IV Q8HR [facility] Last Admin: 05/27/20 07:05 Dose: 125 mg Documented by: Morphine Sulfate (Morphine 2 Mg/1 Ml Inj) 2 mg IV Q5MIN PRN PRN Reason: Chest Pain unrelieved by NTG Nitroglycerin (Nitroglycerin 0.4 Mg Tab Subl) 0.4 mg SL .Q5MIN PRN PRN Reason: Chest Pain Potassium Chloride (Potassium Chloride Er 10 Meq Tab) 10 meq PO QDAY [facility] Last Admin: 05/26/20 12:06 Dose: 10 meq Documented by: Review of Systems Constitutional: weight gain, no fever, no chills, no sweats Ears, nose, mouth and throat: no ear pain, no nose pain, no sinus pressure, no sinus pain Cardiovascular: orthopnea, edema, shortness of breath, dyspnea on exertion, paroxysmal nocturnal dyspnea, high blood pressure, leg edema, decreased exercise tolerance, no chest pain, no palpitations, no rapid/irregular heart beat, no syncope, no lightheadedness Respiratory: shortness of breath, dyspnea on exertion, no cough, no congestion, no wheezing, no pain on inspiration Gastrointestinal: no abdominal pain, no nausea, no vomiting, no diarrhea, no constipation, no change in bowel habits Genitourinary Male: no dysuria, no hematuria, no flank pain, no discharge, no urinary frequency, no urinary hesitancy Musculoskeletal: no neck stiffness, no neck pain, no shooting arm pain, no arm numbness/tingling, no low back pain, no shooting leg pain Integumentary: no rash, no pruritis, no redness, no sores, no wounds Neurological: no head injury, no paralysis, no weakness, no parathesias, no numbness, no tingling, no seizures, no syncope Psychiatric: no anxiety Endocrine: no cold intolerance, no heat intolerance Hematologic/Lymphatic: no easy bruising Allergic/Immunologic: no urticaria Physical Examination Vital Signs Temp Pulse Resp BP Pulse Ox 98.6 F 108 H 20 152/84 74 L 05/25/20 17:10 05/25/20 17:10 05/25/20 17:10 05/25/20 17:10 05/25/20 17:10 General appearance: no acute distress, other (generalized edema) HEENT: Positive: PERRL, Normocephaly, Mucus Membranes Moist Neck: Positive: neck supple, trachea midline Cardiac: Positive: Reg Rate and Rhythm, S1/S2 Lungs: Positive: Decreased Breath Sounds Neuro: Positive: Grossly Intact Abdomen: Negative: Tender Skin: Negative: Rash Musculoskeletal: No Pain Extremities: Present: +1 Edema (BLE) Results 05/25/20 17:38 05/26/20 01:16 - Imaging and Cardiology Echo: pending, report reviewed (tte at [facility] on 05/08/2020 which showed EF 60%, severely dilated RA, trivial pericardial effusion, mild to mod TR, mod to severely reduced RV systolic function, RVSP 62.6mmHg.) EKG: report reviewed, image reviewed EKG interpretations - Telemetry EKG Rhythm: Sinus Rhythm - EKG Sinus rhythms and dysrhythmias: sinus rhythm Assessment and Plan tte reviewed - EF 55-60%, mild LVH, RV volume overload, RV mod dilated, RV systolic function mildly reduced, RA mod dilated, RVSP 67mmHg. Agree with present cardiac management, including IV lasix BID. Initiate HS CPAP. Will follow The patient has been seen in conjunction with Dr. Zayas who agrees with the assessment and plan of care. - Patient Problems (1) Acute heart failure with preserved ejection fraction (HFpEF) Current Visit: Yes Status: Acute (2) Right heart failure Current Visit: Yes Status: Acute (3) Moderate to severe pulmonary hypertension Current Visit: Yes Status: Acute (4) Hypoxia Current Visit: Yes Status: Acute (5) Asthma Current Visit: Yes Status: Acute (6) Morbid obesity Current Visit: Yes Status: Chronic (7) Sleep apnea Current Visit: Yes Status: Suspected (8) Medical non-compliance Current Visit: Yes Status: Chronic
[2020-05-27] MEDS: POTASSIUM CHLORIDE ER 10 MEQ TAB PO SCH (09:44)
[2020-05-27] MEDS: ASPIRIN 81 MG TAB CHEW PO SCH (09:44)
[2020-05-27] MEDS: LISINOPRIL 10 MG TAB PO SCH (10:00)
--- NOTE | 2020-05-27 11:45 | Progress Note ---
Assessment and Plan Assessment and plan: 45-year-old -[place] male recently diagnosed with CHF and history of hypertension, and asthma who presents to [facility] ED with complaints of shortness of breath and worsening lower extremity edema extending up to abdomen x3 to 4 days. This patient is a [facility] patient. Dr. Lott at [place] was contacted by ED physician who has agreed to this admission. Review of chart shows patient presented to the ED on 05/07/2020 with complaints of testicular pain and testicular edema. He was noted to have an elevated BNP subsequently transferred to [facility] for further evaluation and treatment. Patient's reports since being discharged from [facility] approximately 1 week ago he has been experiencing worsening shortness of breath. He is unable to walk more than a few feet without becoming short of breath and needing to take a rest. Additionally patient complains of increased weight gain (he is not able to provide exact weight) since being discharged despite being compliant with meds. He states that he has a follow-up appointment with cardiology at [place] scheduled for 06/02/2020. His symptoms were not improving and he could not wait until his scheduled appointment to seek medical attention. Denies chest pain, fever, chills, headache, palpitations, cough, sputum production, loss of smell, loss of taste, abdominal pain, or recent sick contacts 05/27: Continue Lasix. Patient still significantly hypoxic will need to continue on oxygen. Counseling provided to the patient. Pulmonary consulted residential service technician consulted. Acute exacerbation CHF -Recently diagnosed (approx 2weeks ago) -BNP elevated at 1338 -Troponin negative x2 -CXR shows mild cardiomegaly and mild pulmonary edema -Patient has anasarca -Start IV Lasix twice a day -Echo pending (pt is uncertain if Echo was done at [facility], if able to obtain Echo results, may d/c pending Echo) -On ASA, BB, ELIJAH Acute hypoxic respiratory failure -No Baseline home oxygen requirements -Saturation of 74% on room air -ABG pending -Currently on supplemental -Monitor saturations -Continue supplemental oxygen wean as tolerated Suspected Covid infection -Given patient's presentation and recent hospitalization I am unable to rule out Covid at this time -D-dimer pending -Covid swab pending HTN -Monitor BP -On BB and ELIJAH Asthma -History of asthma -Albuterol as needed Obesity -BMI 49.8 -Diet and lifestyle modifications -May benefit from OP weight mgmt program DVT PPX -On Lovenox Advance Directives: No VTE prophylaxis?: Chemical History Interval history: Patient seen and examined resting comfortably sitting on a chair still with significant orthopnea. I did asked the nurse to do oxygen eval which showed patient still significantly hypoxic he is not wearing his oxygen at the encouragement to put them on. Hospitalist Physical - Physical exam Narrative exam: VITAL SIGNS: Reviewed. GENERAL: The patient appears normally developed, morbidly obese vital signs as documented. HEAD: No signs of head trauma. EYES: Pupils are equal. Extraocular motions intact. EARS: Hearing grossly intact. MOUTH: Oropharynx is normal. NECK: No adenopathy, no JVD. CHEST: Chest with diminished breath sounds bilaterally. No wheezes, rales, or rhonchi. CARDIAC: Regular rate and rhythm. S1 and S2, without murmurs, gallops, or ru bs. VASCULAR: No Edema. Peripheral pulses normal and equal in all extremities. ABDOMEN: Soft, non tender and non distended. No rebound or guarding, and no masses palpated. Enlarged scrotum bowel Sounds normal. MUSCULOSKELETAL: Good range of motion of all major joints. Extremities without clubbing, cyanosis or edema. NEUROLOGIC EXAM: Alert and oriented x 3 No focal sensory or strength deficits. Speech normal. Follows commands. PSYCHIATRIC: Mood normal. SKIN: detail exam as documented in skin assessment - Constitutional Vitals: Temp Pulse Resp BP Pulse Ox 98.5 F 103 H 20 103/52 93 05/27/20 08:44 05/27/20 08:44 05/27/20 08:44 05/27/20 08:44 05/27/20 08:44 General appearance: Present: no acute distress, other (generalized edema) HEART Score - HEART Score Troponin: Troponin T < 0.010 ng/mL (0.00-0.029) 05/25/20 20:40 Results - Labs CBC & Chem 7: 05/25/20 17:38 05/26/20 01:16 Labs: Laboratory Last Values WBC 7.5 K/mm3 (4.5-11.0) 05/25/20 17:38 RBC 6.27 M/mm3 (3.65-5.03) H 12/28/20 17:38 Hgb 14.3 gm/dl (11.8-15.2) 05/25/20 17:38 Hct 48.9 % (35.5-45.6) H 05/25/20 17:38 MCV 78 fl (84-94) L 05/25/20 17:38 MCH 23 pg (28-32) L 05/25/20 17:38 MCHC 29 % (32-34) L 05/25/20 17:38 RDW 22.9 % (13.2-15.2) H 05/25/20 17:38 Plt Count 416 K/mm3 (140-440) 05/25/20 17:38 Lymph % (Auto) 12.0 % (13.4-35.0) L 05/25/20 17:38 Swain % (Auto) 12.2 % (0.0-7.3) H 05/25/20 17:38 Eos % (Auto) 1.1 % (0.0-4.3) 05/25/20 17:38 Baso % (Auto) 0.8 % (0.0-1.8) 05/25/20 17:38 Lymph # (Auto) 0.9 K/mm3 (1.2-5.4) L 05/25/20 17:38 Swain # (Auto) 0.9 K/mm3 (0.0-0.8) H 05/25/20 17:38 Eos # (Auto) 0.1 K/mm3 (0.0-0.4) 05/25/20 17:38 Baso # (Auto) 0.1 K/mm3 (0.0-0.1) 05/25/20 17:38 Seg Neutrophils % 73.9 % (40.0-70.0) H 05/25/20 17:38 Seg Neutrophils # 5.5 K/mm3 (1.8-7.7) 05/25/20 17:38 PT 13.9 Sec. (12.2-14.9) 05/25/20 17:38 INR 1.08 (0.87-1.13) 05/25/20 17:38 APTT 26.3 Sec. (24.2-36.6) 05/25/20 17:38 D-Dimer 545.69 ng/mlDDU (0-234) H 05/26/20 01:16 ABG pH 7.222 (7.320-7.450) L 05/26/20 11:21 POC ABG pCO2 102.0 mmHg (32.0-48.0) H 05/26/20 11:21 POC ABG pO2 39.3 mmHg (83-108) L 05/26/20 11:21 POC ABG HCO3 41.0 05/26/20 11:21 POC ABG Base Excess 8.5 05/26/20 11:21 ABG Hemoglobin 15.5 (12.0-17.5) 05/26/20 11:21 ABG Oxyhemoglobin 66.4 (94-98) L 05/26/20 11:21 ABG Methemoglobin 0.1 (0.0-1.5) 05/26/20 11:21 ABG Sodium 143.3 mmol/L (136.0-145.0) 05/26/20 11:21 ABG Potassium 4.1 mmol/L (3.40-4.50) 05/26/20 11:21 ABG Chloride 94.0 mmol/L (98-107) L 05/26/20 11:21 ABG Glucose 111 mg/dL (65-95) H 05/26/20 11:21 Carboxyhemoglobin 2.3 (0.5-1.5) H 05/26/20 11:21 FiO2 21.0 05/26/20 11:21 Sodium 141 mmol/L (137-145) 05/25/20 17:38 Potassium 3.8 mmol/L (3.6-5.0) 05/25/20 17:38 Chloride 98.4 mmol/L (98-107) 05/25/20 17:38 Carbon Dioxide 39 mmol/L (22-30) H 05/25/20 17:38 Anion Gap 7 mmol/L 05/25/20 17:38 BUN 16 mg/dL (9-20) 05/25/20 17:38 Creatinine 0.9 mg/dL (0.8-1.3) 05/25/20 17:38 Estimated GFR > 60 ml/min 05/25/20 17:38 BUN/Creatinine Ratio 18 % 05/25/20 17:38 Glucose 88 mg/dL (75-100) 05/26/20 01:16 Hemoglobin A1c 6.1 % (4-6) H 05/26/20 02:06 Lactic Acid 1.00 mmol/L (0.7-2.0) 05/26/20 01:16 Calcium 8.1 mg/dL (8.4-10.2) L 05/25/20 17:38 Ferritin 26.5 ng/mL (30.0-300.0) L 05/26/20 01:16 Total Bilirubin 0.50 mg/dL (0.1-1.2) 05/25/20 17:38 AST 23 units/L (5-40) 05/25/20 17:38 ALT 28 units/L (7-56) 05/25/20 17:38 Alkaline Phosphatase 85 units/L (35-129) 05/25/20 17:38 Lactate Dehydrogenase 240 units/L (91-180) H 05/26/20 01:16 Troponin T < 0.010 ng/mL (0.00-0.029) 05/25/20 20:40 C-Reactive Protein 1.00 mg/dL (0.00-1.30) 05/26/20 01:16 NT-Pro-B Natriuret Pep 1338 pg/mL (0-450) H 05/25/20 17:38 Total Protein 5.7 g/dL (6.3-8.2) L 05/25/20 17:38 Albumin 3.0 g/dL (3.9-5) L 05/25/20 17:38 Albumin/Globulin Ratio 1.1 % 05/25/20 17:38 Procalcitonin 0.12 ng/mL (<0.15) 05/26/20 01:16 Arterial Blood Glucose 111 mg/dL (65-95) H 05/26/20 11:21 Arterial Blood Ionized Calcium 4.8 mg/dL (4.6-5.3) 05/26/20 11:21 Urine Color Yellow (Yellow) 05/26/20 Unknown Urine Turbidity Clear (Clear) 05/26/20 Unknown Urine pH 6.0 (5.0-7.0) 05/26/20 Unknown Ur Specific Fraser 1.017 (1.003-1.030) 05/26/20 Unknown Urine Protein 100 mg/dl mg/dL (Negative) 05/26/20 Unknown Urine Glucose (UA) Neg mg/dL (Negative) 05/26/20 Unknown Urine Ketones Neg mg/dL (Negative) 05/26/20 Unknown Urine Blood Neg (Negative) 05/26/20 Unknown Urine Nitrite Neg (Negative) 05/26/20 Unknown Urine Bilirubin Neg (Negative) 05/26/20 Unknown Urine Urobilinogen 2.0 mg/dL (<2.0) 05/26/20 Unknown Ur Leukocyte Esterase Neg (Negative) 05/26/20 Unknown Urine WBC (Auto) 4.0 /HPF (0.0-6.0) 05/26/20 Unknown Urine RBC (Auto) 1.0 /HPF (0.0-6.0) 05/26/20 Unknown U Epithel Cells (Auto) < 1.0 /HPF (0-13.0) 05/26/20 Unknown Hyaline Casts 14 /LPF 05/26/20 Unknown Urine Mucus Few /HPF 05/26/20 Unknown Coronavirus (PCR) Negative (Negative) 05/26/20 08:52 Microbiology: Microbiology 05/26/20 02:06 Peripheral/Venous Blood Culture - Preliminary NO GROWTH AFTER 24 HOURS 05/26/20 01:16 Peripheral/Venous Blood Culture - Preliminary NO GROWTH AFTER 24 HOURS - Diagnostic Impressions Diagnostic Impressions: Echocardiogram 05/26/20 01:24 Transthoracic Echocardiogram Indication: Dyspnea BP: 174/92 HR: 97 Conclusions *The left ventricular chamber size is normal. *Mild concentric left ventricular hypertrophy is observed. *The estimated ejection fraction is 55-60%. *There is septal flattening of the interventricular septum consistent with right ventricular volume or pressure overload. *The left atrial chamber size is normal. *The right ventricle is moderately dilated. *The right ventricular global systolic function is mildly reduced. *The right atrium is moderately dilated. *The right ventricular systolic pressure is calculated at 67 mmHg. *The inferior vena cava is dilated. *There is less than 50% respiratory change in the inferior vena cava dimension. Findings Left Ventricle: The left ventricular chamber size is normal. Mild concentric left ventricular hypertrophy is observed. Global left ventricular systolic function is normal. The estimated ejection fraction is 55-60%. There is septal flattening of the interventricular septum consistent with right ventricular volume or pressure overload. Normal left ventricular diastolic filling is observed. Abnormal left ventricular diastolic filling is observed, consistent with impaired relaxation. Left Atrium: The left atrial chamber size is normal. Right Ventricle: The right ventricle is moderately dilated. The right ventricular global systolic function is mildly reduced. Right Atrium: The right atrium is moderately dilated. Aortic Valve: There is no evidence of aortic valve thickening. There is no evidence of aortic regurgitation. Mitral Valve: The mitral valve leaflets are mildly thickened. There is trace of mitral regurgitation. Tricuspid Valve: The tricuspid valve leaflets are normal. There is mild tricuspid regurgitation. The right ventricular systolic pressure is calculated at 67 mmHg. Pulmonic Valve: There is no evidence of pulmonic valve thickening. There is trace pulmonic regurgitation. Pericardium: There is no pericardial effusion. Aorta: The aorta appears normal. Venous: The inferior vena cava is dilated. There is less than 50% respiratory change in the inferior vena cava dimension. Measurements Chambers 2D Name Value Normal Range IVSd (2D) 1.11 cm (0.6 - 1.1) LVPWd (2D) 1.2 cm (0.6 - 1.1) LVIDd (2D) 4.49 cm (3.7 - 5.6) LVIDs (2D) 3.08 cm (2 - 3.8) LV FS (2D) 31.42 % - EF Teichholz (2D) 59.45 % - Ao root diameter (2D) 3.28 cm (2 - 3.7) Volumes/Mass Name Value Normal Range LA ESV SP 4CH (A/L) 44.85 ml - LA ESV SP 2CH (A/L) 98.09 ml - LA ESV BP (A/L) 70.22 ml - LA ESV BP (A/L) index 24.9 ml/m2 - LA ESV SP 4CH (MOD) 41.98 ml - LA ESV SP 2CH (MOD) 92.48 ml - LA ESV BP (MOD) 65.91 ml - LA ESV BP (MOD) index 23.37 ml/m2 - Diastolic/Systolic Function Name Value Normal Range MV E-wave Vmax 1 m/sec - MV deceleration time 126.22 msec - MV A-wave Vmax 0.51 m/sec - MV E:A ratio 1.98 ratio - Aortic Valve Name Value Normal Range AV Vmax 1.89 m/sec - AV VTI 28.63 cm - AV peak gradient 14.21 mmHg - AV mean gradient 6.71 mmHg - LVOT diameter 2.34 cm - LVOT Vmax 1.61 m/sec - LVOT VTI 25.94 cm - LVOT peak gradient 10.37 mmHg - LVOT mean gradient 5.24 mmHg - SV LVOT 111.81 ml - FERNANDO (continuity Vmax) 3.68 cm2 - FERNANDO (continuity VTI) 3.91 cm2 - Ascending Ao 3.8 cm - Tricuspid Valve Name Value Normal Range TR Vmax 3.61 m/sec - TR peak gradient 52 mmHg - RAP 15 mmHg - RVSP 67 mmHg - IVC diameter 3.48 cm (1.2 - 2.3) Pulmonic Valve/Qp:Qs Name Value Normal Range PV Vmax 0.77 m/sec - PV peak gradient 2.37 mmHg - MA end-diastolic Vmax 1.2 m/sec - PV acceleration time 72.31 msec - Elliott/IV: Voiding Method Urinal IV Catheter Type [Left INT / Saline Lock Antecubital] Active Medications - Current Medications Current Medications: Generic Name Dose Route Start Last Admin Trade Name Freq PRN Reason Stop Dose Admin Albuterol 2.5 mg 05/26/20 01:27 Albuterol 2.5 Mg/3 Ml Nebu IH Q4HRT PRN Shortness Of Breath Albuterol/Ipratropium 1 ampul 05/26/20 20:00 05/27/20 07:48 Ipratropium/Albuterol Sulfate 3 Ml Ampul.Neb IH 1 ampul QIDRT CAMMIE Administration Aspirin 81 mg 05/26/20 10:00 05/27/20 09:44 Aspirin 81 Mg Tab Chew PO 81 mg QDAY CAMMIE Administration Carvedilol 3.125 mg 05/26/20 08:00 05/26/20 16:57 Carvedilol 3.125 Mg Tab PO 3.125 mg BID@0800,1700 [facility] Administration Enoxaparin Sodium 40 mg 05/26/20 22:00 05/26/20 21:33 Enoxaparin 40 Mg/0.4 Ml Inj SUB-Q 40 mg QDAY@2200 [facility] Administration Protocol Furosemide 40 mg 05/26/20 06:00 05/27/20 07:06 Furosemide 40 Mg/4 Ml Inj IV Not Given BID@0600,1800 [facility] Levofloxacin/Dextrose 750 mg in 150 mls @ 100 mls/hr 05/26/20 20:00 05/26/20 21:31 Levaquin 750mg/150ml IV 05/30/20 21:29 100 mls/hr Q24H CAMMIE Administration Protocol Lisinopril 10 mg 05/26/20 10:00 05/26/20 10:16 Lisinopril 10 Mg Tab PO 10 mg QDAY CAMMIE Administration Methylprednisolone Sodium Succinate 125 mg 05/26/20 22:00 05/27/20 07:05 Methylprednisolone Sod Succinate 125 Mg/2 Ml Inj IV 125 mg Q8HR CAMMIE Administration Morphine Sulfate 2 mg 05/26/20 01:22 Morphine 2 Mg/1 Ml Inj IV Q5MIN PRN Chest Pain unrelieved by NTG Nitroglycerin 0.4 mg 05/26/20 01:22 Nitroglycerin 0.4 Mg Tab Subl SL .Q5MIN PRN Chest Pain Potassium Chloride 10 meq 05/26/20 10:00 05/27/20 09:44 Potassium Chloride Er 10 Meq Tab PO 10 meq QDAY CAMMIE Administration
--- NOTE | 2020-05-27 13:59 | Consultation ---
History of Present Illness Consult date: 05/27/20 Reason for consult: dyspnea, asthma, hypoxemia, pulmonary hypertension, obstructive sleep apnea History of present illness: 45-year-old -[place] male recently diagnosed with CHF and history of hypertension, and asthma who presents to [facility] ED with complaints of shortness of breath and worsening lower extremity edema extending up to abdomen x3 to 4 days. This patient is a [facility] patient. Dr. Lott at [facility] was contacted by ED physician who has agreed to this admission. Patient presented to the ED on 05/07/2020 with complaints of testicular pain and testicular edema. He was noted to have an elevated BNP subsequently transferred to [facility] for further evaluation and treatment. Patient's reports since being discharged from [facility] approximately 1 week ago he has been experiencing worsening shortness of breath. He is unable to walk more than a few feet without becoming short of breath and needing to take a rest. Additionally patient complains of increased weight gain (he is not able to provide exact weight) since being discharged despite being compliant with meds. He states that he has a follow-up appointment with cardiology at [facility] scheduled for 06/02/2020. His symptoms were not improving and he could not wait until his scheduled appointment to seek medical attention. Denies chest pain, fever, chills, headache, palpitations, cough, sputum production, loss of smell, loss of taste, abdominal pain, or recent sick contacts Patients main complaint is shortness of breath and peripheral edema. Patient denies smoking, alcohol or drug abuse. Patient works at [email or web address] No known drug allergies. patient not . Has no children. Patient Morbidly Obese. ABG ABG pH 7.222 (7.320-7.450) L 05/26/20 11:21 POC ABG pCO2 102.0 mmHg (32.0-48.0) H 05/26/20 11:21 POC ABG pO2 39.3 mmHg (83-108) L 05/26/20 11:21 POC ABG HCO3 41.0 05/26/20 11:21 On room air. Patient likely has Obesity hypoventilation. Recommend sleep study. Placing him on BIPAP. Patient suppose to be on 2 litres o2. patient not using his O2. Chest xray obtained 05/25/20 reported Mild cardiomegaly and mild interstitial pulmonary edema. Patient alert, awake and sitting by the side of the bed at this time. Past History Past Medical History: other (CHF, HTN, Asthma, Morbid Obesity) Past Surgical History: hernia repair Social history: single, other (Lives with mother) Family history: hypertension Medications and Allergies Allergies Allergy/AdvReac Type Severity Reaction Status Date / Time No Known Allergies Allergy Verified 06/20/13 10:54 Home Medications Medication Instructions Recorded Confirmed Last Taken Type Albuterol Mdi (or & Nicu Only) 1 puff IH PRN PRN 05/27/20 05/27/20 Unknown History [ProAir HFA Inhaler] Furosemide [Lasix TAB] 40 mg PO QDAY 05/27/20 05/27/20 Unknown History carvediloL [Coreg] 3.125 mg PO BID 05/27/20 05/27/20 Unknown History Active Meds: Active Medications Albuterol (Albuterol 2.5 Mg/3 Ml Nebu) 2.5 mg IH Q4HRT PRN PRN Reason: Shortness Of Breath Albuterol/Ipratropium (Ipratropium/Albuterol Sulfate 3 Ml Ampul.Neb) 1 ampul IH QIDRT [facility] Last Admin: 05/27/20 07:48 Dose: 1 ampul Documented by: Aspirin (Aspirin 81 Mg Tab Chew) 81 mg PO QDAY [facility] Last Admin: 05/27/20 09:44 Dose: 81 mg Documented by: Carvedilol (Carvedilol 3.125 Mg Tab) 3.125 mg PO BID@0800,1700 [facility] Last Admin: 05/26/20 16:57 Dose: 3.125 mg Documented by: Enoxaparin Sodium (Enoxaparin 40 Mg/0.4 Ml Inj) 40 mg SUB-Q QDAY@2200 [facility]; Protocol Last Admin: 05/26/20 21:33 Dose: 40 mg Documented by: Furosemide (Furosemide 40 Mg/4 Ml Inj) 40 mg IV BID@0600,1800 [facility] Last Admin: 05/27/20 07:06 Dose: Not Given Documented by: Levofloxacin/Dextrose (Levaquin 750mg/150ml) 750 mg in 150 mls @ 100 mls/hr IV Q24H [facility]; Protocol Stop: 05/30/20 21:29 Last Admin: 05/26/20 21:31 Dose: 100 mls/hr Documented by: Lisinopril (Lisinopril 10 Mg Tab) 10 mg PO QDAY [facility] Last Admin: 05/26/20 10:16 Dose: 10 mg Documented by: Methylprednisolone Sodium Succinate (Methylprednisolone Sod Succinate 125 Mg/2 Ml Inj) 125 mg IV Q8HR [facility] Last Admin: 05/27/20 07:05 Dose: 125 mg Documented by: Morphine Sulfate (Morphine 2 Mg/1 Ml Inj) 2 mg IV Q5MIN PRN PRN Reason: Chest Pain unrelieved by NTG Nitroglycerin (Nitroglycerin 0.4 Mg Tab Subl) 0.4 mg SL .Q5MIN PRN PRN Reason: Chest Pain Potassium Chloride (Potassium Chloride Er 10 Meq Tab) 10 meq PO QDAY [facility] Last Admin: 05/27/20 09:44 Dose: 10 meq Documented by: Review of Systems All systems: negative Physical Examination Vital signs: Vital Signs Temp Pulse Resp BP Pulse Ox 98.6 F 108 H 20 152/84 74 L 05/25/20 17:10 05/25/20 17:10 05/25/20 17:10 05/25/20 17:10 05/25/20 17:10 General appearance: no acute distress, alert, other (Morbidly Obese.) Eyes: non-icteric ENT: oropharynx moist Neck: supple, no JVD Effort: mildly labored Ascultation: Bilateral: diminished breath sounds Cardiovascular: regular rate and rhythm Gastrointestinal: normoactive bowel sounds, soft, non-tender Integumentary: normal Extremities: no cyanosis, edema Musculoskeletal: no deformities Gait: other (Presently resting in bed.) normal mental status, non-focal exam, pupils equal and round, CN II-XII normal mood appropriate Results - Laboratory Findings CBC and BMP: 05/25/20 17:38 05/26/20 01:16 ABG ABG pH 7.222 (7.320-7.450) L 05/26/20 11:21 POC ABG pCO2 102.0 mmHg (32.0-48.0) H 05/26/20 11:21 POC ABG pO2 39.3 mmHg (83-108) L 05/26/20 11:21 POC ABG HCO3 41.0 05/26/20 11:21 PT/INR, D-dimer PT 13.9 Sec. (12.2-14.9) 05/25/20 17:38 INR 1.08 (0.87-1.13) 05/25/20 17:38 D-Dimer 545.69 ng/mlDDU (0-234) H 05/26/20 01:16 Abnormal lab findings: Abnormal Labs 05/25/20 05/25/20 05/26/20 17:38 17:38 01:16 RBC 6.27 H Hct 48.9 H MCV 78 L MCH 23 L MCHC 29 L RDW 22.9 H Lymph % (Auto) 12.0 L Boyd % (Auto) 12.2 H Lymph # (Auto) 0.9 L Boyd # (Auto) 0.9 H Seg Neutrophils % 73.9 H D-Dimer 545.69 H ABG pH POC ABG pCO2 POC ABG pO2 ABG Oxyhemoglobin ABG Chloride ABG Glucose Carboxyhemoglobin Carbon Dioxide 39 H Glucose 101 H Hemoglobin A1c Calcium 8.1 L Ferritin Lactate Dehydrogenase NT-Pro-B Natriuret Pep 1338 H Total Protein 5.7 L Albumin 3.0 L Arterial Blood Glucose 05/26/20 05/26/20 05/26/20 01:16 01:16 02:06 RBC Hct MCV MCH MCHC RDW Lymph % (Auto) Boyd % (Auto) Lymph # (Auto) Boyd # (Auto) Seg Neutrophils % D-Dimer ABG pH POC ABG pCO2 POC ABG pO2 ABG Oxyhemoglobin ABG Chloride ABG Glucose Carboxyhemoglobin Carbon Dioxide Glucose Hemoglobin A1c 6.1 H Calcium Ferritin 26.5 L Lactate Dehydrogenase 240 H NT-Pro-B Natriuret Pep Total Protein Albumin Arterial Blood Glucose 05/26/20 11:21 RBC Hct MCV MCH MCHC RDW Lymph % (Auto) Boyd % (Auto) Lymph # (Auto) Boyd # (Auto) Seg Neutrophils % D-Dimer ABG pH 7.222 L POC ABG pCO2 102.0 H POC ABG pO2 39.3 L ABG Oxyhemoglobin 66.4 L ABG Chloride 94.0 L ABG Glucose 111 H Carboxyhemoglobin 2.3 H Carbon Dioxide Glucose Hemoglobin A1c Calcium Ferritin Lactate Dehydrogenase NT-Pro-B Natriuret Pep Total Protein Albumin Arterial Blood Glucose 111 H - Diagnostic Findings Chest x-ray: report reviewed, image reviewed Additional studies: CHEST 2 VIEWS 05/25/20 INDICATION / CLINICAL INFORMATION: Chest pain. COMPARISON: 05/07/2020 FINDINGS: SUPPORT DEVICES: None. HEART / MEDIASTINUM: Stable mild cardiomegaly. LUNGS / PLEURA: Mild interstitial edema. No significant effusion. No pneumothorax. ADDITIONAL FINDINGS: No significant additional findings. IMPRESSION: 1. Mild cardiomegaly and mild interstitial pulmonary edema. Assessment and Plan 45-year-old -[place] male recently diagnosed with CHF and history of hypertension, and asthma who presents to [facility] ED with complaints of shortness of breath and worsening lower extremity edema extending up to abdomen x3 to 4 days. This patient is a [facility] patient. Dr. Lott at [facility] was contacted by ED physician who has agreed to this admission. Patient presented to the ED on 05/07/2020 with complaints of testicular pain and testicular edema. He was noted to have an elevated BNP subsequently transferred to [facility] for further evaluation and treatment. Patient's reports since being discharged from [facility] approximately 1 week ago he has been experiencing worsening shortness of breath. He is unable to walk more than a few feet without becoming short of breath and needing to take a rest. Additionally patient complains of increased weight gain (he is not able to provide exact weight) since being discharged despite being compliant with meds. He states that he has a follow-up appointment with cardiology at [facility] scheduled for 06/02/2020. His symptoms were not improving and he could not wait until his scheduled appointment to seek medical attention. Denies chest pain, fever, chills, headache, palpitations, cough, sputum production, loss of smell, loss of taste, abdominal pain, or recent sick contacts Patients main complaint is shortness of breath and peripheral edema. Patient denies smoking, alcohol or drug abuse. Patient works at [email or web address] No known drug allergies. patient not . Has no children. Patient Morbidly Obese. ABG ABG pH 7.222 (7.320-7.450) L 05/26/20 11:21 POC ABG pCO2 102.0 mmHg (32.0-48.0) H 05/26/20 11:21 POC ABG pO2 39.3 mmHg (83-108) L 05/26/20 11:21 POC ABG HCO3 41.0 05/26/20 11:21 On room air. Patient likely has Obesity hypoventilation. Recommend sleep study. Placing him on BIPAP. Patient suppose to be on 2 litres o2. patient not using his O2. Chest xray obtained 05/25/20 reported Mild cardiomegaly and mild interstitial pulmonary edema. Patient alert, awake and sitting by the side of the bed at this time. I spent critical care time of 50 minutes obtaining history, review the chart, examining the patient, review chest xray and lab results, talking to the respitry therapy, nursing staff and work out plan of treatment in this critically ill patient. - Patient Problems (1) Respiratory failure Current Visit: Yes Status: Acute Plan to address problem: BIPAP 20/8, FIO2 35%, Rate 20. Albuterol/atrovent aerosol treatments q 6 hours. Continue I/V solumedrol Continue S/C Lovenox. Continue levaquin. Recommend GI prophylaxis. (2) Asthma Current Visit: Yes Status: Acute Plan to address problem: BIPAP 20/8, FIO2 35%, Rate 20. Albuterol/atrovent aerosol treatments q 6 hours. Continue I/V solumedrol Continue S/C Lovenox. Continue levaquin. (3) Acute heart failure with preserved ejection fraction (HFpEF) Current Visit: Yes Status: Acute Plan to address problem: Management as per cardiology (4) Moderate to severe pulmonary hypertension Current Visit: Yes Status: Acute Plan to address problem: Likely from secondary to respiratory and cardiac problems. Continue treat above conditions. (5) Morbid obesity Current Visit: Yes Status: Chronic Plan to address problem: Recommend to loose weight Diet and exercise. Recommend sleep study as out patient. (6) Sleep apnea Current Visit: Yes Status: Suspected Plan to address problem: Placing him on BIPAP 20/8, rate 20, FIO2 35%. (7) Post traumatic stress disorder (PTSD) Current Visit: No Status: Acute Plan to address problem: Management as per primary care.
[2020-05-27 19:30] LABS: ABG HCO3 30.9 mmol/L (20.0-26.0); ABG Methemoglobin 0.5 % (0.0-1.5); ABG Oxygen Saturation 95.1 % (95.0-99.0); ABG PCO2 72.4 mm Hg; ABG PH 7.248 pH Units (7.350-7.450)
[2020-05-27] MEDS: ENOXAPARIN 40 MG/0.4 ML INJ SUB-Q SCH (21:59)
[2020-05-28] MEDS: FUROSEMIDE 40 MG/4 ML INJ IV SCH ×2 (06:21→17:30)
[2020-05-28] MEDS: methylPREDNISolone Sod Succinate 125 MG/2 ML INJ IV SCH ×3 (06:21→22:08)
[2020-05-28 08:54] LABS: BUN/Creatinine Ratio 25; Blood Urea Nitrogen 20 mg/dL (9-20); Calcium 8.8 mg/dL (8.4-10.2); Hemolysis Index 2
--- NOTE | 2020-05-28 08:58 | Progress Note ---
Assessment and Plan Assessment and plan: 45-year-old -Bul[place] male recently diagnosed with CHF and history of hypertension, and asthma who presents to [facility] ED with complaints of shortness of breath and worsening lower extremity edema extending up to abdomen x3 to 4 days. This patient is a [facility] patient. Dr. Lott at [facility] was contacted by ED physician who has agreed to this admission. Review of chart shows patient presented to the ED on 05/07/2020 with complaints of testicular pain and testicular edema. He was noted to have an elevated BNP subsequently transferred to [facility] for further evaluation and treatment. Patient's reports since being discharged from [facility] approximately 1 week ago he has been experiencing worsening shortness of breath. He is unable to walk more than a few feet without becoming short of breath and needing to take a rest. Additionally patient complains of increased weight gain (he is not able to provide exact weight) since being discharged despite being compliant with meds. He states that he has a follow-up appointment with cardiology at [facility] scheduled for 06/02/2020. His symptoms were not improving and he could not wait until his scheduled appointment to seek medical attention. Denies chest pain, fever, chills, headache, palpitations, cough, sputum production, loss of smell, loss of taste, abdominal pain, or recent sick contacts 05/27: Continue Lasix. Patient still significantly hypoxic will need to continue on oxygen. Counseling provided to the patient. Pulmonary consulted joint machine operator consulted. 05/28: We will continue aggressive diuresis management per joint machine operator and envelope stuffer. Encourage BiPAP at night which he has been using. He is still not compliant with his oxygen he verbalized understanding. He still has orthopnea he sleeps in the chair due to this. Cardiology on echo reviewed- EF 55-60%, mild LVH, RV volume overload, RV mod dilated, RV systolic function mildly reduced, RA mod dilated, RVSP 67mmHg. Covid testing was negative Acute exacerbation CHF -Recently diagnosed (approx 2weeks ago) -BNP elevated at 1338 -Troponin negative x2 -CXR shows mild cardiomegaly and mild pulmonary edema -Patient has anasarca -Start IV Lasix twice a day -Echo pending (pt is uncertain if Echo was done at [facility], if able to obtain Echo results, may d/c pending Echo) -On ASA, BB, ELIJAH Acute hypoxic respiratory failure -No Baseline home oxygen requirements -Saturation of 74% on room air -ABG pending -Currently on supplemental -Monitor saturations -Continue supplemental oxygen wean as tolerated Suspected Covid infection-ruled out -Given patient's presentation and recent hospitalization I am unable to rule out Covid at this time -D-dimer pending -Covid swab pending HTN -Monitor BP -On BB and ELIJAH Asthma -History of asthma -Albuterol as needed Obesity -BMI 49.8 -Diet and lifestyle modifications -May benefit from OP weight mgmt program DVT PPX -On Lovenox Advance Directives: No VTE prophylaxis?: Chemical History Interval history: Patient seen and examined resting comfortably sitting on a chair still with significant orthopnea. Although he appears comfortable once again he is not wearing his oxygen I did advise him to put them on as he is significantly hypoxic. Hospitalist Physical - Physical exam Narrative exam: VITAL SIGNS: Reviewed. GENERAL: The patient appears normally developed, morbidly obese vital signs as documented. HEAD: No signs of head trauma. EYES: Pupils are equal. Extraocular motions intact. EARS: Hearing grossly intact. MOUTH: Oropharynx is normal. NECK: No adenopathy, no JVD. CHEST: Chest with diminished breath sounds bilaterally. No wheezes, rales, or rhonchi. CARDIAC: Regular rate and rhythm. S1 and S2, without murmurs, gallops, or rubs. VASCULAR: trace Edema. Peripheral pulses normal and equal in all extremities. ABDOMEN: Soft, non tender and non distended. No rebound or guarding, and no masses palpated. Enlarged scrotum bowel Sounds normal. MUSCULOSKELETAL: Good range of motion of all major joints. Extremities without clubbing, cyanosis. trace edema. NEUROLOGIC EXAM: Alert and oriented x 3 No focal sensory or strength deficits. Speech normal. Follows commands. PSYCHIATRIC: Mood normal. SKIN: detail exam as documented in skin assessment - Constitutional Vitals: Temp Pulse Resp BP Pulse Ox 98.7 F 104 H 20 102/55 83 L 05/28/20 04:12 05/28/20 04:12 05/28/20 04:12 05/28/20 04:12 05/28/20 04:12 General appearance: Present: no acute distress, other (generalized edema) HEART Score - HEART Score Troponin: Troponin T < 0.010 ng/mL (0.00-0.029) 05/25/20 20:40 Results - Labs CBC & Chem 7: 05/25/20 17:38 05/28/20 07:42 Labs: Laboratory Last Values WBC 7.5 K/mm3 (4.5-11.0) 05/25/20 17:38 RBC 6.27 M/mm3 (3.65-5.03) H 05/25/20 17:38 Hgb 14.3 gm/dl (11.8-15.2) 05/25/20 17:38 Hct 48.9 % (35.5-45.6) H 05/25/20 17:38 MCV 78 fl (84-94) L 05/25/20 17:38 MCH 23 pg (28-32) L 05/25/20 17:38 MCHC 29 % (32-34) L 05/25/20 17:38 RDW 22.9 % (13.2-15.2) H 05/25/20 17:38 Plt Count 416 K/mm3 (140-440) 05/25/20 17:38 Lymph % (Auto) 12.0 % (13.4-35.0) L 05/25/20 17:38 [place] % (Auto) 12.2 % (0.0-7.3) H 05/25/20 17:38 Eos % (Auto) 1.1 % (0.0-4.3) 05/25/20 17:38 Baso % (Auto) 0.8 % (0.0-1.8) 05/25/20 17:38 Lymph # (Auto) 0.9 K/mm3 (1.2-5.4) L 05/25/20 17:38 [place] # (Auto) 0.9 K/mm3 (0.0-0.8) H 05/25/20 17:38 Eos # (Auto) 0.1 K/mm3 (0.0-0.4) 05/25/20 17:38 Baso # (Auto) 0.1 K/mm3 (0.0-0.1) 05/25/20 17:38 Seg Neutrophils % 73.9 % (40.0-70.0) H 05/25/20 17:38 Seg Neutrophils # 5.5 K/mm3 (1.8-7.7) 05/25/20 17:38 PT 13.9 Sec. (12.2-14.9) 05/25/20 17:38 INR 1.08 (0.87-1.13) 05/25/20 17:38 APTT 26.3 Sec. (24.2-36.6) 05/25/20 17:38 D-Dimer 545.69 ng/mlDDU (0-234) H 05/26/20 01:16 ABG pH 7.248 pH Units (7.350-7.450) L 05/27/20 18:55 POC ABG pCO2 102.0 mmHg (32.0-48.0) H 05/26/20 11:21 ABG pCO2 72.4 mm Hg 05/27/20 18:55 POC ABG pO2 39.3 mmHg (83-108) L 05/26/20 11:21 ABG pO2 82.0 mm Hg (80.0-90.0) 05/27/20 18:55 POC ABG HCO3 41.0 05/26/20 11:21 ABG HCO3 30.9 mmol/L (20.0-26.0) H 05/27/20 18:55 ABG O2 Saturation 95.1 % (95.0-99.0) 05/27/20 18:55 ABG O2 Content 15.6 (0.0-44) 05/27/20 18:55 POC ABG Base Excess 8.5 05/26/20 11:21 ABG Base Excess 2.0 mmol/L (-2.0-3.0) 05/27/20 18:55 ABG Hemoglobin 12.1 gm/dl (14.0-18.0) L 05/27/20 18:55 ABG Oxyhemoglobin 66.4 (94-98) L 05/26/20 11:21 ABG Carboxyhemoglobin 3.3 % (0.0-5.0) 05/27/20 18:55 ABG Methemoglobin 0.5 % (0.0-1.5) 05/27/20 18:55 ABG Sodium 143.3 mmol/L (136.0-145.0) 05/26/20 11:21 ABG Potassium 4.1 mmol/L (3.40-4.50) 05/26/20 11:21 ABG Chloride 94.0 mmol/L (98-107) L 05/26/20 11:21 ABG Glucose 111 mg/dL (65-95) H 05/26/20 11:21 Oxyhemoglobin 91.5 % (95.0-99.0) L 05/27/20 18:55 Carboxyhemoglobin 2.3 (0.5-1.5) H 05/26/20 11:21 FiO2 28 % 05/27/20 18:55 Sodium 143 mmol/L (137-145) 05/28/20 07:42 Potassium 3.8 mmol/L (3.6-5.0) 05/25/20 17:38 Chloride 96.0 mmol/L (98-107) L 05/28/20 07:42 Carbon Dioxide 39 mmol/L (22-30) H 05/25/20 17:38 Anion Gap 7 mmol/L 05/25/20 17:38 BUN 20 mg/dL (9-20) 05/28/20 07:42 Creatinine 0.8 mg/dL (0.8-1.3) 05/28/20 07:42 Estimated GFR > 60 ml/min 05/28/20 07:42 BUN/Creatinine Ratio 25 % 05/28/20 07:42 Glucose 109 mg/dL (75-100) H 05/28/20 07:42 Hemoglobin A1c 6.1 % (4-6) H 05/26/20 02:06 Lactic Acid 1.00 mmol/L (0.7-2.0) 05/26/20 01:16 Calcium 8.8 mg/dL (8.4-10.2) 05/28/20 07:42 Ferritin 26.5 ng/mL (30.0-300.0) L 05/26/20 01:16 Total Bilirubin 0.50 mg/dL (0.1-1.2) 05/25/20 17:38 AST 23 units/L (5-40) 05/25/20 17:38 ALT 28 units/L (7-56) 05/25/20 17:38 Alkaline Phosphatase 85 units/L (35-129) 05/25/20 17:38 Lactate Dehydrogenase 240 units/L (91-180) H 05/26/20 01:16 Troponin T < 0.010 ng/mL (0.00-0.029) 05/25/20 20:40 C-Reactive Protein 1.00 mg/dL (0.00-1.30) 05/26/20 01:16 NT-Pro-B Natriuret Pep 1338 pg/mL (0-450) H 05/25/20 17:38 Total Protein 5.7 g/dL (6.3-8.2) L 05/25/20 17:38 Albumin 3.0 g/dL (3.9-5) L 05/25/20 17:38 Albumin/Globulin Ratio 1.1 % 05/25/20 17:38 Procalcitonin 0.12 ng/mL (<0.15) 05/26/20 01:16 Arterial Blood Glucose 111 mg/dL (65-95) H 05/26/20 11:21 Arterial Blood Ionized Calcium 4.8 mg/dL (4.6-5.3) 05/26/20 11:21 Urine Color Yellow (Yellow) 05/26/20 Unknown Urine Turbidity Clear (Clear) 05/26/20 Unknown Urine pH 6.0 (5.0-7.0) 05/26/20 Unknown Ur Specific Arthur 1.017 (1.003-1.030) 05/26/20 Unknown Urine Protein 100 mg/dl mg/dL (Negative) 05/26/20 Unknown Urine Glucose (UA) Neg mg/dL (Negative) 05/26/20 Unknown Urine Ketones Neg mg/dL (Negative) 05/26/20 Unknown Urine Blood Neg (Negative) 05/26/20 Unknown Urine Nitrite Neg (Negative) 05/26/20 Unknown Urine Bilirubin Neg (Negative) 05/26/20 Unknown Urine Urobilinogen 2.0 mg/dL (<2.0) 05/26/20 Unknown Ur Leukocyte Esterase Neg (Negative) 05/26/20 Unknown Urine WBC (Auto) 4.0 /HPF (0.0-6.0) 05/26/20 Unknown Urine RBC (Auto) 1.0 /HPF (0.0-6.0) 05/26/20 Unknown U Epithel Cells (Auto) < 1.0 /HPF (0-13.0) 05/26/20 Unknown Hyaline Casts 14 /LPF 05/26/20 Unknown Urine Mucus Few /HPF 05/26/20 Unknown Coronavirus (PCR) Negative (Negative) 05/26/20 08:52 Microbiology: Microbiology 05/26/20 02:06 Peripheral/Venous Blood Culture - Preliminary NO GROWTH AFTER 48 HOURS 05/26/20 01:16 Peripheral/Venous Blood Culture - Preliminary NO GROWTH AFTER 48 HOURS - Diagnostic Impressions Diagnostic Impressions: Echocardiogram 05/26/20 01:24 Transthoracic Echocardiogram Indication: Dyspnea BP: 174/92 HR: 97 Conclusions *The left ventricular chamber size is normal. *Mild concentric left ventricular hypertrophy is observed. *The estimated ejection fraction is 55-60%. *There is septal flattening of the interventricular septum consistent with right ventricular volume or pressure overload. *The left atrial chamber size is normal. *The right ventricle is moderately dilated. *The right ventricular global systolic function is mildly reduced. *The right atrium is moderately dilated. *The right ventricular systolic pressure is calculated at 67 mmHg. *The inferior vena cava is dilated. *There is less than 50% respiratory change in the inferior vena cava dimension. Findings Left Ventricle: The left ventricular chamber size is normal. Mild concentric left ventricular hypertrophy is observed. Global left ventricular systolic function is normal. The estimated ejection fraction is 55-60%. There is septal flattening of the interventricular septum consistent with right ventricular volume or pressure overload. Normal left ventricular diastolic filling is observed. Abnormal left ventricular diastolic filling is observed, consistent with impaired relaxation. Left Atrium: The left atrial chamber size is normal. Right Ventricle: The right ventricle is moderately dilated. The right ventricular global systolic function is mildly reduced. Right Atrium: The right atrium is moderately dilated. Aortic Valve: There is no evidence of aortic valve thickening. There is no evidence of aortic regurgitation. Mitral Valve: The mitral valve leaflets are mildly thickened. There is trace of mitral regurgitation. Tricuspid Valve: The tricuspid valve leaflets are normal. There is mild tricuspid regurgitation. The right ventricular systolic pressure is calculated at 67 mmHg. Pulmonic Valve: There is no evidence of pulmonic valve thickening. There is trace pulmonic regurgitation. Pericardium: There is no pericardial effusion. Aorta: The aorta appears normal. Venous: The inferior vena cava is dilated. There is less than 50% respiratory change in the inferior vena cava dimension. Measurements Chambers 2D Name Value Normal Range IVSd (2D) 1.11 cm (0.6 - 1.1) LVPWd (2D) 1.2 cm (0.6 - 1.1) LVIDd (2D) 4.49 cm (3.7 - 5.6) LVIDs (2D) 3.08 cm (2 - 3.8) LV FS (2D) 31.42 % - EF Teichholz (2D) 59.45 % - Ao root diameter (2D) 3.28 cm (2 - 3.7) Volumes/Mass Name Value Normal Range LA ESV SP 4CH (A/L) 44.85 ml - LA ESV SP 2CH (A/L) 98.09 ml - LA ESV BP (A/L) 70.22 ml - LA ESV BP (A/L) index 24.9 ml/m2 - LA ESV SP 4CH (MOD) 41.98 ml - LA ESV SP 2CH (MOD) 92.48 ml - LA ESV BP (MOD) 65.91 ml - LA ESV BP (MOD) index 23.37 ml/m2 - Diastolic/Systolic Function Name Value Normal Range MV E-wave Vmax 1 m/sec - MV deceleration time 126.22 msec - MV A-wave Vmax 0.51 m/sec - MV E:A ratio 1.98 ratio - Aortic Valve Name Value Normal Range AV Vmax 1.89 m/sec - AV VTI 28.63 cm - AV peak gradient 14.21 mmHg - AV mean gradient 6.71 mmHg - LVOT diameter 2.34 cm - LVOT Vmax 1.61 m/sec - LVOT VTI 25.94 cm - LVOT peak gradient 10.37 mmHg - LVOT mean gradient 5.24 mmHg - SV LVOT 111.81 ml - FERNANDO (continuity Vmax) 3.68 cm2 - FERNANDO (continuity VTI) 3.91 cm2 - Ascending Ao 3.8 cm - Tricuspid Valve Name Value Normal Range TR Vmax 3.61 m/sec - TR peak gradient 52 mmHg - RAP 15 mmHg - RVSP 67 mmHg - IVC diameter 3.48 cm (1.2 - 2.3) Pulmonic Valve/Qp:Qs Name Value Normal Range PV Vmax 0.77 m/sec - PV peak gradient 2.37 mmHg - [place] end-diastolic Vmax 1.2 m/sec - PV acceleration time 72.31 msec - Elliott/IV: Voiding Method Urinal IV Catheter Type [Left INT / Saline Lock Antecubital] Active Medications - Current Medications Current Medications: Generic Name Dose Route Start Last Admin Trade Name Freq PRN Reason Stop Dose Admin Albuterol 2.5 mg 05/26/20 01:27 Albuterol 2.5 Mg/3 Ml Nebu IH Q4HRT PRN Shortness Of Breath Albuterol/Ipratropium 1 ampul 05/26/20 20:00 05/27/20 21:11 Ipratropium/Albuterol Sulfate 3 Ml Ampul.Neb IH 1 ampul QIDRT CAMMIE Administration Aspirin 81 mg 05/26/20 10:00 05/27/20 09:44 Aspirin 81 Mg Tab Chew PO 81 mg QDAY CAMMIE Administration Carvedilol 3.125 mg 05/26/20 08:00 05/27/20 17:55 Carvedilol 3.125 Mg Tab PO 3.125 mg BID@0800,1700 CAMMIE Administration Enoxaparin Sodium 40 mg 05/26/20 22:00 05/27/20 21:59 Enoxaparin 40 Mg/0.4 Ml Inj SUB-Q 40 mg QDAY@2200 CAMMIE Administration Protocol Furosemide 40 mg 05/26/20 06:00 05/28/20 06:21 Furosemide 40 Mg/4 Ml Inj IV 40 mg BID@0600,1800 [facility] Administration Levofloxacin/Dextrose 750 mg in 150 mls @ 100 mls/hr 05/26/20 20:00 05/27/20 21:59 Levaquin 750mg/150ml IV 05/30/20 21:29 100 mls/hr Q24H CAMMIE Administration Protocol Lisinopril 10 mg 05/26/20 10:00 05/27/20 10:00 Lisinopril 10 Mg Tab PO Not Given QDAY [facility] Methylprednisolone Sodium Succinate 125 mg 05/26/20 22:00 05/28/20 06:21 Methylprednisolone Sod Succinate 125 Mg/2 Ml Inj IV 125 mg Q8HR CAMMIE Administration Morphine Sulfate 2 mg 05/26/20 01:22 Morphine 2 Mg/1 Ml Inj IV Q5MIN PRN Chest Pain unrelieved by NTG Nitroglycerin 0.4 mg 05/26/20 01:22 Nitroglycerin 0.4 Mg Tab Subl SL .Q5MIN PRN Chest Pain Potassium Chloride 10 meq 05/26/20 10:00 05/27/20 09:44 Potassium Chloride Er 10 Meq Tab PO 10 meq QDAY CAMMIE Administration
[2020-05-28] MEDS: ASPIRIN 81 MG TAB CHEW PO SCH (09:46)
[2020-05-28] MEDS: LISINOPRIL 10 MG TAB PO SCH (09:46)
[2020-05-28] MEDS: POTASSIUM CHLORIDE ER 10 MEQ TAB PO SCH (09:46)
[2020-05-28] MEDS: carvediloL 3.125 MG TAB PO SCH ×2 (09:47→17:30)
[2020-05-28] MEDS: IPRATROPIUM/ALBUTEROL SULFATE 3 ML AMPUL.NEB IH SCH ×5 (09:47→20:35)
--- NOTE | 2020-05-28 09:59 | Progress Note ---
Assessment and Plan Cont IV lasix BID, add zaroxolyn today. Compliance with CPAP encouraged. The patient has been seen in conjunction with Dr. Zayas who agrees with the assessment and plan of care. - Patient Problems (1) Acute heart failure with preserved ejection fraction (HFpEF) Current Visit: Yes Status: Acute (2) Right heart failure Current Visit: Yes Status: Acute (3) Moderate to severe pulmonary hypertension Current Visit: Yes Status: Acute (4) Hypoxia Current Visit: Yes Status: Acute (5) Asthma Current Visit: Yes Status: Acute (6) Morbid obesity Current Visit: Yes Status: Chronic (7) Sleep apnea Current Visit: Yes Status: Suspected (8) Medical non-compliance Current Visit: Yes Status: Chronic Subjective Date of service: 05/28/20 Principal diagnosis: HF Interval history: pt sitting up in chair, edema gradually improving. refusing to wear remote cd mixer helper. refused to wear CPAP last night due to it being "uncomfortable". Objective Last Vital Signs Temp 98.9 F 05/28/20 08:59 Pulse 97 H 05/28/20 09:47 Resp 20 05/28/20 08:59 BP 138/76 05/28/20 09:47 Pulse Ox 89 05/28/20 08:59 - Physical Examination General: No Apparent Distress HEENT: Positive: PERRL, Normocephaly, Mucus Membranes Moist Neck: Positive: neck supple, trachea midline Cardiac: Positive: Reg Rate and Rhythm, S1/S2 Lungs: Positive: Decreased Breath Sounds Neuro: Positive: Grossly Intact Abdomen: Negative: Tender Skin: Negative: Rash Musculoskeletal: No Pain Extremities: Present: +1 Edema (BLE) - Labs and Meds Comprehensive Metabolic Panel 05/28/20 Range/Units 07:42 Sodium 143 (137-145) mmol/L Potassium 4.8 D (3.6-5.0) mmol/L Chloride 96.0 L (98-107) mmol/L Carbon Dioxide 42 H* (22-30) mmol/L BUN 20 (9-20) mg/dL Creatinine 0.8 (0.8-1.3) mg/dL Glucose 109 H (75-100) mg/dL Calcium 8.8 (8.4-10.2) mg/dL - Imaging and Cardiology EKG: report reviewed, image reviewed Echo: report reviewed (05/27/3030: EF 55-60%, mild LVH, RV volume overload, RV mod dilated, RV systolic function mildly reduced, RA mod dilated, RVSP 67mmHg; 05/08/2020 showed EF 60%, severely dilated RA, trivial pericardial effusion, mild to mod TR, mod to severely reduced RV systolic function, RVSP 62.6mmHg.) - Telemetry EKG Rhythm: Sinus Rhythm - EKG Sinus rhythms and dysrhythmias: sinus rhythm
[2020-05-28] MEDS: metOLazone 5 MG TAB PO SCH (13:23)
--- NOTE | 2020-05-28 14:16 | Progress Note ---
Assessment and Plan Acute exacerbation CHF Acute hypoxemic respiratory failure PUI COVID-19 HTN Asthma Obesity - 2D ECHO demonstrates moderate to severee pulmonary HTN - continue diuresis but avoid IVVD as right ventricle partially reliant on starling forces at this point - continue NIV scheduled with prn daytime use - follow repeat ABG - continue care as below otherwise; - continue to wean supplemental oxygen to keep O2 sats > 90% - prn Bronchodilators (JANETH) with pulm hygiene per RT - continue systemic steroids with quick taper (tapered to solumedrol 60 mg IV q8h) - continue diuresis re: HFpEF - monitor electrolytes, avoid nephrotoxins, renally dose all medications - mobility protocols to prevent pressure ulcers - PT/OT as tolerated - prn analgesia per pain score - accuchecks with glycemic control per SSI for target blood glucose < 180 mg/dL - Smoking abstinence counseled at the bedside - weight loss / lifestyle change counseling - home oxygen evaluation at discharge - GI & VTE prophylaxis - Flu & pneumovax per protocol - Pulmonary out patient follow up for PFTs and optimization of respiratory status - continue other care per attending / other consultants ... re-evaluate in am & prn Subjective Date of service: 05/28/20 Principal diagnosis: AE-CHF; Ac hypoxemic resp failure; PUI COVID-19; HTN; Asthma; Obesity Interval history: Patient is seen today for: Acute exacerbation CHF; Acute hypoxemic respiratory failure; PUI COVID-19; HTN; Asthma; Obesity Seen and examined at bedside; 24hour events reviewed; nursing and respiratory care staff consulted; no adverse overnight events reported to me; resting peacefully in bed; sitting up in chair; + excessive daytime somnolence; denies chest pain; No N/V/F/C Objective Vital Signs - 12hr 05/28/20 05/28/20 05/28/20 04:12 08:59 09:46 Temperature 98.7 F 98.9 F Pulse Rate 104 H 97 H 97 H Respiratory 20 20 Rate Blood Pressure 102/55 138/76 138/76 O2 Sat by Pulse 83 L 89 Oximetry 05/28/20 09:47 Temperature Pulse Rate 97 H Respiratory Rate Blood Pressure 138/76 O2 Sat by Pulse Oximetry Constitutional: no acute distress, lethargic, other (Morbidly Obese middle aged male with normal respiratory effort at rest) Eyes: non-icteric ENT: oropharynx moist, other (mallampati 4) Neck: supple, no JVD, other (large circumference) Effort: normal Ascultation: Bilateral: clear, diminished breath sounds Percussion: Bilateral: not dull Cardiovascular: regular rate and rhythm Gastrointestinal: normoactive bowel sounds, soft, non-tender, non-distended (protuberant) Integumentary: normal Extremities: no cyanosis, pulses normal, no ischemia or petechiae, edema (2+) Neurologic: normal mental status, non-focal exam (grossly), pupils equal and round, CN II-XII normal, motor strength normal and, other (somnolent to lethargic) Psychiatric: mood appropriate, affect normal CBC and BMP: 05/25/20 17:38 05/28/20 07:42 ABG, PT/INR, D-dimer: ABG ABG pH 7.248 pH Units (7.350-7.450) L 05/27/20 18:55 POC ABG pCO2 102.0 mmHg (32.0-48.0) H 05/26/20 11:21 ABG pCO2 72.4 mm Hg 05/27/20 18:55 POC ABG pO2 39.3 mmHg (83-108) L 05/26/20 11:21 ABG pO2 82.0 mm Hg (80.0-90.0) 05/27/20 18:55 POC ABG HCO3 41.0 05/26/20 11:21 ABG O2 Saturation 95.1 % (95.0-99.0) 05/27/20 18:55 PT/INR, D-dimer PT 13.9 Sec. (12.2-14.9) 05/25/20 17:38 INR 1.08 (0.87-1.13) 05/25/20 17:38 D-Dimer 545.69 ng/mlDDU (0-234) H 05/26/20 01:16 Abnormal lab findings: Abnormal Labs 05/25/20 05/25/20 05/26/20 17:38 17:38 01:16 RBC 6.27 H Hct 48.9 H MCV 78 L MCH 23 L MCHC 29 L RDW 22.9 H Lymph % (Auto) 12.0 L Gillespie % (Auto) 12.2 H Lymph # (Auto) 0.9 L Gillespie # (Auto) 0.9 H Seg Neutrophils % 73.9 H D-Dimer 545.69 H ABG pH POC ABG pCO2 POC ABG pO2 ABG HCO3 ABG Hemoglobin ABG Oxyhemoglobin ABG Chloride ABG Glucose Oxyhemoglobin Carboxyhemoglobin Chloride Carbon Dioxide 39 H Glucose 101 H Hemoglobin A1c Calcium 8.1 L Ferritin Lactate Dehydrogenase NT-Pro-B Natriuret Pep 1338 H Total Protein 5.7 L Albumin 3.0 L Arterial Blood Glucose 05/26/20 05/26/20 05/26/20 01:16 01:16 02:06 RBC Hct MCV MCH MCHC RDW Lymph % (Auto) Gillespie % (Auto) Lymph # (Auto) Gillespie # (Auto) Seg Neutrophils % D-Dimer ABG pH POC ABG pCO2 POC ABG pO2 ABG HCO3 ABG Hemoglobin ABG Oxyhemoglobin ABG Chloride ABG Glucose Oxyhemoglobin Carboxyhemoglobin Chloride Carbon Dioxide Glucose Hemoglobin A1c 6.1 H Calcium Ferritin 26.5 L Lactate Dehydrogenase 240 H NT-Pro-B Natriuret Pep Total Protein Albumin Arterial Blood Glucose 05/26/20 05/27/20 05/28/20 11:21 18:55 07:42 RBC Hct MCV MCH MCHC RDW Lymph % (Auto) Gillespie % (Auto) Lymph # (Auto) Gillespie # (Auto) Seg Neutrophils % D-Dimer ABG pH 7.222 L 7.248 L POC ABG pCO2 102.0 H POC ABG pO2 39.3 L ABG HCO3 30.9 H ABG Hemoglobin 12.1 L ABG Oxyhemoglobin 66.4 L ABG Chloride 94.0 L ABG Glucose 111 H Oxyhemoglobin 91.5 L Carboxyhemoglobin 2.3 H Chloride 96.0 L Carbon Dioxide 42 H* Glucose 109 H Hemoglobin A1c Calcium Ferritin Lactate Dehydrogenase NT-Pro-B Natriuret Pep Total Protein Albumin Arterial Blood Glucose 111 H
[2020-05-28] MEDS: ENOXAPARIN 40 MG/0.4 ML INJ SUB-Q SCH (22:08)
[2020-05-29] MEDS: methylPREDNISolone Sod Succinate 125 MG/2 ML INJ IV SCH ×3 (05:54→23:24)
[2020-05-29] MEDS: FUROSEMIDE 40 MG/4 ML INJ IV SCH (05:54)
[2020-05-29 06:52] LABS: BUN/Creatinine Ratio 26; Blood Urea Nitrogen 26 mg/dL (9-20); Calcium 9.3 mg/dL (8.4-10.2); Hemolysis Index 53
[2020-05-29 10:15] LABS: ABG Base Excess 17.8 mmol/L (-2.0-3.0); ABG HCO3 49.5 mmol/L (20.0-26.0); ABG Methemoglobin 0.6 % (0.0-1.5); ABG Oxygen Saturation 94.8 % (95.0-99.0); ABG PCO2 99.7 mm Hg; ABG PH 7.314 pH Units (7.350-7.450); ABG PO2 77.1 mm Hg (80.0-90.0)
[2020-05-29] MEDS: ASPIRIN 81 MG TAB CHEW PO SCH (11:05)
[2020-05-29] MEDS: metOLazone 5 MG TAB PO SCH (11:05)
[2020-05-29] MEDS: LISINOPRIL 10 MG TAB PO SCH (11:06)
[2020-05-29] MEDS: POTASSIUM CHLORIDE ER 10 MEQ TAB PO SCH (11:06)
[2020-05-29] MEDS: carvediloL 3.125 MG TAB PO SCH ×2 (11:06→17:41)
--- NOTE | 2020-05-29 11:57 | Progress Note ---
Assessment and Plan 45yo AAM: 1. HFpEF with moderate to severe pulm htn/cor pulmonale * cont lasix * narrow fluid equilibrium * ? medication compliance * cont current venecia/bb dosing as bp soft this am * noncompliant w/ wearing tele * clinically improving --> nearing euvolemia but i/os are uncertain * will need at least one more day of diuresis * follow electrolytes closely 2. SHANNAN 3. HTN 4. Obesity 5. Medication noncompliance - Patient Problems (1) Acute heart failure with preserved ejection fraction (HFpEF) Current Visit: Yes Status: Acute (2) Moderate to severe pulmonary hypertension Current Visit: Yes Status: Acute (3) Right heart failure Current Visit: Yes Status: Acute (4) Medical non-compliance Current Visit: Yes Status: Chronic (5) Sleep apnea Current Visit: Yes Status: Suspected (6) Post traumatic stress disorder (PTSD) Current Visit: No Status: Acute Subjective Date of service: 05/29/20 Principal diagnosis: AE-CHF; Ac hypoxemic resp failure; PUI COVID-19; HTN; Asthma; Obesity Interval history: feels better less sob, no cp Objective Vital Signs Temp Pulse Pulse Resp Resp BP BP 05/29/20 09:03 18 05/29/20 08:59 18 05/29/20 05:46 98.0 F 104 H 20 105/67 05/29/20 00:06 98.5 F 96 H 20 151/96 05/28/20 20:36 05/28/20 20:32 05/28/20 20:30 91 H 20 05/28/20 19:23 97.9 F 96 H 20 151/82 05/28/20 17:30 98.6 F 93 H 20 138/76 138/78 05/28/20 14:02 91 H 16 Pulse Ox 05/29/20 09:03 100 05/29/20 08:59 100 05/29/20 05:46 56 L 05/29/20 00:06 89 05/28/20 20:36 94 05/28/20 20:32 94 05/28/20 20:30 05/28/20 19:23 90 05/28/20 17:30 96 05/28/20 14:02 - Physical Examination General: No Apparent Distress HEENT: Positive: PERRL, Normocephaly, Mucus Membranes Moist Neck: Positive: neck supple, trachea midline Neuro: Positive: Grossly Intact Abdomen: Negative: Tender Skin: Negative: Rash Musculoskeletal: No Pain Extremities: Present: +1 Edema (BLE) - Labs and Meds Comprehensive Metabolic Panel 05/29/20 Range/Units 06:12 Sodium 143 (137-145) mmol/L Potassium 4.6 (3.6-5.0) mmol/L Chloride 94.0 L (98-107) mmol/L Carbon Dioxide 46 H* (22-30) mmol/L BUN 26 H (9-20) mg/dL Creatinine 1.0 (0.8-1.3) mg/dL Glucose 122 H (75-100) mg/dL Calcium 9.3 (8.4-10.2) mg/dL - Imaging and Cardiology EKG: report reviewed, image reviewed Echo: report reviewed (05/27/3030: EF 55-60%, mild LVH, RV volume overload, RV mod dilated, RV systolic function mildly reduced, RA mod dilated, RVSP 67mmHg; 05/08/2020 showed EF 60%, severely dilated RA, trivial pericardial effusion, mild to mod TR, mod to severely reduced RV systolic function, RVSP 62.6mmHg.) - EKG Sinus rhythms and dysrhythmias: sinus rhythm
--- NOTE | 2020-05-29 14:40 | Progress Note ---
<ISABELLAMARLIN VillavicencioJessica - Last Filed: 05/29/20 18:18> Assessment and Plan Assessment and plan: Acute exacerbation CHF -Recently diagnosed (approx 2weeks ago) -BNP elevated at 1338 -Troponin negative x2 -CXR shows mild cardiomegaly and mild pulmonary edema -Cardiology consulted, appreciate recommendations -IV Lasix -05/26 TTE shows left ventricular chamber size normal, mild concentric left ventricular hypertrophy, estimated EF 55 to 60%, right ventricular volume or pressure overload, moderate dilated RV, RV global systolic function is mildly reduced, mildly dilated RA, RVSP calculated at 67 mmHg, IVC dilated. -On ASA, BB, ELIJAH Acute hypoxic respiratory failure -No Baseline home oxygen requirements -Saturation of 74% on room air -ABG pending -Currently on supplemental -Monitor saturations -Continue supplemental oxygen wean as tolerated -Pulmonology consulted, patient recommendations Suspected Covid infection -Given patient's presentation and recent hospitalization I am unable to rule out Covid at this time -05/26 D-dimer 545 -Covid swab negative HTN -Monitor BP -On BB and ELIJAH Asthma -History of asthma -Albuterol as needed Obesity -BMI 49.8 -Diet and lifestyle modifications -May benefit from OP weight mgmt program DVT PPX -On Lovenox Advance Directives: No VTE prophylaxis?: Chemical History Interval history: 45-year-old -[place] male recently diagnosed with CHF and history of hypertension, and asthma who presents to [facility] ED with complaints of shortness of breath and worsening lower extremity edema extending up to abdomen x3 to 4 days. This patient is a [facility] patient. Dr. Lott at [facility] was contacted by ED physician who has agreed to this admission. Review of chart shows patient pr esented to the ED on 05/07/2020 with complaints of testicular pain and testicular edema. He was noted to have an elevated BNP subsequently transferred to [facility] for further evaluation and treatment. Patient's reports since being discharged from [facility] approximately 1 week ago he has been experiencing worsening shortness of breath. He is unable to walk more than a few feet without becoming short of breath and needing to take a rest. Additionally patient complains of increased weight gain (he is not able to provide exact weight) since being discharged despite being compliant with meds. He states that he has a follow-up appointment with cardiology at [facility] scheduled for 06/02/2020. His symptoms were not improving and he could not wait until his scheduled appointment to seek medical attention. Denies chest pain, fever, chills, headache, palpitations, cough, sputum production, loss of smell, loss of taste, abdominal pain, or recent sick contacts 05/27: Continue Lasix. Patient still significantly hypoxic will need to continue on oxygen. Counseling provided to the patient. 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 Hospitalist Physical - Constitutional Vitals: Temp Pulse Resp BP Pulse Ox 98.0 F 104 H 18 105/67 100 05/29/20 05:46 05/29/20 05:46 05/29/20 09:03 05/29/20 05:46 05/29/20 09:03 General appearance: Present: no acute distress, other (generalized edema) HEART Score - HEART Score Troponin: Troponin T < 0.010 ng/mL (0.00-0.029) 05/25/20 20:40 Results - Labs CBC & Chem 7: 05/25/20 17:38 05/29/20 06:12 Labs: Laboratory Last Values WBC 7.5 K/mm3 (4.5-11.0) 05/25/20 17:38 RBC 6.27 M/mm3 (3.65-5.03) H 05/25/20 17:38 Hgb 14.3 gm/dl (11.8-15.2) 05/25/20 17:38 Hct 48.9 % (35.5-45.6) H 05/25/20 17:38 MCV 78 fl (84-94) L 05/25/20 17:38 MCH 23 pg (28-32) L 05/25/20 17:38 MCHC 29 % (32-34) L 05/25/20 17:38 RDW 22.9 % (13.2-15.2) H 05/25/20 17:38 Plt Count 416 K/mm3 (140-440) 05/25/20 17:38 Lymph % (Auto) 12.0 % (13.4-35.0) L 05/25/20 17:38 [place] % (Auto) 12.2 % (0.0-7.3) H 05/25/20 17:38 Eos % (Auto) 1.1 % (0.0-4.3) 05/25/20 17:38 Baso % (Auto) 0.8 % (0.0-1.8) 05/25/20 17:38 Lymph # (Auto) 0.9 K/mm3 (1.2-5.4) L 05/25/20 17:38 [place] # (Auto) 0.9 K/mm3 (0.0-0.8) H 05/25/20 17:38 Eos # (Auto) 0.1 K/mm3 (0.0-0.4) 05/25/20 17:38 Baso # (Auto) 0.1 K/mm3 (0.0-0.1) 05/25/20 17:38 Seg Neutrophils % 73.9 % (40.0-70.0) H 05/25/20 17:38 Seg Neutrophils # 5.5 K/mm3 (1.8-7.7) 05/25/20 17:38 PT 13.9 Sec. (12.2-14.9) 05/25/20 17:38 INR 1.08 (0.87-1.13) 05/25/20 17:38 APTT 26.3 Sec. (24.2-36.6) 05/25/20 17:38 D-Dimer 545.69 ng/mlDDU (0-234) H 05/26/20 01:16 ABG pH 7.314 pH Units (7.350-7.450) L 05/29/20 10:00 POC ABG pCO2 102.0 mmHg (32.0-48.0) H 05/26/20 11:21 ABG pCO2 99.7 mm Hg 05/29/20 10:00 POC ABG pO2 39.3 mmHg (83-108) L 05/26/20 11: ABG pO2 77.1 mm Hg (80.0-90.0) L 05/29/20 10:00 POC ABG HCO3 41.0 05/26/20 11: ABG HCO3 49.5 mmol/L (20.0-26.0) H 05/29/20 10:00 ABG O2 Saturation 94.8 % (95.0-99.0) L 05/29/20 10:00 ABG O2 Content 18.4 (0.0-44) 05/29/20 10:00 POC ABG Base Excess 8.5 05/26/20 11:21 ABG Base Excess 17.8 mmol/L (-2.0-3.0) H 05/29/20 10:00 ABG Hemoglobin 14.3 gm/dl (14.0-18.0) 05/29/20 10:00 ABG Oxyhemoglobin 66.4 (94-98) L 05/26/20 11:21 ABG Carboxyhemoglobin 3.2 % (0.0-5.0) 05/29/20 10:00 ABG Methemoglobin 0.6 % (0.0-1.5) 05/29/20 10:00 ABG Sodium 143.3 mmol/L (136.0-145.0) 05/26/20 11:21 ABG Potassium 4.1 mmol/L (3.40-4.50) 05/26/20 11:21 ABG Chloride 94.0 mmol/L (98-107) L 05/26/20 11:21 ABG Glucose 111 mg/dL (65-95) H 05/26/20 11:21 Oxyhemoglobin 91.3 % (95.0-99.0) L 05/29/20 10:00 Carboxyhemoglobin 2.3 (0.5-1.5) H 05/26/20 11:21 FiO2 32 % 05/29/20 10:00 Sodium 143 mmol/L (137-145) 05/29/20 06:12 Potassium 4.6 mmol/L (3.6-5.0) 05/29/20 06:12 Chloride 94.0 mmol/L (98-107) L 05/29/20 06:12 Carbon Dioxide 46 mmol/L (22-30) H* 05/29/20 06:12 Anion Gap 8 mmol/L 05/29/20 06:12 BUN 26 mg/dL (9-20) H 05/29/20 06:12 Creatinine 1.0 mg/dL (0.8-1.3) 05/29/20 06:12 Estimated GFR > 60 ml/min 05/29/20 06:12 BUN/Creatinine Ratio 26 % 05/29/20 06:12 Glucose 122 mg/dL (75-100) H 05/29/20 06:12 Hemoglobin A1c 6.1 % (4-6) H 05/26/20 02:06 Lactic Acid 1.00 mmol/L (0.7-2.0) 05/26/20 01:16 Calcium 9.3 mg/dL (8.4-10.2) 05/29/20 06:12 Ferritin 26.5 ng/mL (30.0-300.0) L 05/26/20 01:16 Total Bilirubin 0.50 mg/dL (0.1-1.2) 05/25/20 17:38 AST 23 units/L (5-40) 05/25/20 17:38 ALT 28 units/L (7-56) 05/25/20 17:38 Alkaline Phosphatase 85 units/L (35-129) 05/25/20 17:38 Lactate Dehydrogenase 240 units/L (91-180) H 05/26/20 01:16 Troponin T < 0.010 ng/mL (0.00-0.029) 05/25/20 20:40 C-Reactive Protein 1.00 mg/dL (0.00-1.30) 05/26/20 01:16 NT-Pro-B Natriuret Pep 1338 pg/mL (0-450) H 05/25/20 17:38 Total Protein 5.7 g/dL (6.3-8.2) L 05/25/20 17:38 Albumin 3.0 g/dL (3.9-5) L 05/25/20 17:38 Albumin/Globulin Ratio 1.1 % 05/25/20 17:38 Procalcitonin 0.12 ng/mL (<0.15) 05/26/20 01:16 Arterial Blood Glucose 111 mg/dL (65-95) H 05/26/20 11:21 Arterial Blood Ionized Calcium 4.8 mg/dL (4.6-5.3) 05/26/20 11:21 Urine Color Yellow (Yellow) 05/26/20 Unknown Urine Turbidity Clear (Clear) 05/26/20 Unknown Urine pH 6.0 (5.0-7.0) 05/26/20 Unknown Ur Specific [place] 1.017 (1.003-1.030) 05/26/20 Unknown Urine Protein 100 mg/dl mg/dL (Negative) 05/26/20 Unknown Urine Glucose (UA) Neg mg/dL (Negative) 05/26/20 Unknown Urine Ketones Neg mg/dL (Negative) 05/26/20 Unknown Urine Blood Neg (Negative) 05/26/20 Unknown Urine Nitrite Neg (Negative) 05/26/20 Unknown Urine Bilirubin Neg (Negative) 05/26/20 Unknown Urine Urobilinogen 2.0 mg/dL (<2.0) 05/26/20 Unknown Ur Leukocyte Esterase Neg (Negative) 05/26/20 Unknown Urine WBC (Auto) 4.0 /HPF (0.0-6.0) 05/26/20 Unknown Urine RBC (Auto) 1.0 /HPF (0.0-6.0) 05/26/20 Unknown U Epithel Cells (Auto) < 1.0 /HPF (0-13.0) 05/26/20 Unknown Hyaline Casts 14 /LPF 05/26/20 Unknown Urine Mucus Few /HPF 05/26/20 Unknown Coronavirus (PCR) Negative (Negative) 05/26/20 08:52 Microbiology: Microbiology 05/26/20 02:06 Peripheral/Venous Blood Culture - Preliminary NO GROWTH AFTER 72 HOURS 05/26/20 01:16 Peripheral/Venous Blood Culture - Preliminary NO GROWTH AFTER 72 HOURS - Diagnostic Impressions Diagnostic Impressions: Echocardiogram 05/26/20 01:24 Transthoracic Echocardiogram Indication: Dyspnea BP: 174/92 HR: 97 Conclusions *The left ventricular chamber size is normal. *Mild concentric left ventricular hypertrophy is observed. *The estimated ejection fraction is 55-60%. *There is septal flattening of the interventricular septum consistent with right ventricular volume or pressure overload. *The left atrial chamber size is normal. *The right ventricle is moderately dilated. *The right ventricular global systolic function is mildly reduced. *The right atrium is moderately dilated. *The right ventricular systolic pressure is calculated at 67 mmHg. *The inferior vena cava is dilated. *There is less than 50% respiratory change in the inferior vena cava dimension. Findings Left Ventricle: The left ventricular chamber size is normal. Mild concentric left ventricular hypertrophy is observed. Global left ventricular systolic function is normal. The estimated ejection fraction is 55-60%. There is septal flattening of the interventricular septum consistent with right ventricular volume or pressure overload. Normal left ventricular diastolic filling is observed. Abnormal left ventricular diastolic filling is observed, consistent with impaired relaxation. Left Atrium: The left atrial chamber size is normal. Right Ventricle: The right ventricle is moderately dilated. The right ventricular global systolic function is mildly reduced. Right Atrium: The right atrium is moderately dilated. Aortic Valve: There is no evidence of aortic valve thickening. There is no evidence of aortic regurgitation. Mitral Valve: The mitral valve leaflets are mildly thickened. There is trace of mitral regurgitation. Tricuspid Valve: The tricuspid valve leaflets are normal. There is mild tricuspid regurgitation. The right ventricular systolic pressure is calculated at 67 mmHg. Pulmonic Valve: There is no evidence of pulmonic valve thickening. There is trace pulmonic regurgitation. Pericardium: There is no pericardial effusion. Aorta: The aorta appears normal. Venous: The inferior vena cava is dilated. There is less than 50% respiratory change in the inferior vena cava dimension. Measurements Chambers 2D Name Value Normal Range IVSd (2D) 1.11 cm (0.6 - 1.1) LVPWd (2D) 1.2 cm (0.6 - 1.1) LVIDd (2D) 4.49 cm (3.7 - 5.6) LVIDs (2D) 3.08 cm (2 - 3.8) LV FS (2D) 31.42 % - EF Teichholz (2D) 59.45 % - Ao root diameter (2D) 3.28 cm (2 - 3.7) Volumes/Mass Name Value Normal Range LA ESV SP 4CH (A/L) 44.85 ml - LA ESV SP 2CH (A/L) 98.09 ml - LA ESV BP (A/L) 70.22 ml - LA ESV BP (A/L) index 24.9 ml/m2 - LA ESV SP 4CH (MOD) 41.98 ml - LA ESV SP 2CH (MOD) 92.48 ml - LA ESV BP (MOD) 65.91 ml - LA ESV BP (MOD) index 23.37 ml/m2 - Diastolic/Systolic Function Name Value Normal Range MV E-wave Vmax 1 m/sec - MV deceleration time 126.22 msec - MV A-wave Vmax 0.51 m/sec - MV E:A ratio 1.98 ratio - Aortic Valve Name Value Normal Range AV Vmax 1.89 m/sec - AV VTI 28.63 cm - AV peak gradient 14.21 mmHg - AV mean gradient 6.71 mmHg - LVOT diameter 2.34 cm - LVOT Vmax 1.61 m/sec - LVOT VTI 25.94 cm - LVOT peak gradient 10.37 mmHg - LVOT mean gradient 5.24 mmHg - SV LVOT 111.81 ml - FERNANDO (continuity Vmax) 3.68 cm2 - FERNANDO (continuity VTI) 3.91 cm2 - Ascending Ao 3.8 cm - Tricuspid Valve Name Value Normal Range TR Vmax 3.61 m/sec - TR peak gradient 52 mmHg - RAP 15 mmHg - RVSP 67 mmHg - IVC diameter 3.48 cm (1.2 - 2.3) Pulmonic Valve/Qp:Qs Name Value Normal Range PV Vmax 0.77 m/sec - PV peak gradient 2.37 mmHg - LA end-diastolic Vmax 1.2 m/sec - PV acceleration time 72.31 msec - Elliott/IV: Voiding Method Toilet IV Catheter Type [Left INT / Saline Lock Antecubital] Active Medications - Current Medications Current Medications: Generic Name Dose Route Start Last Admin Trade Name Freq PRN Reason Stop Dose Admin Albuterol 2.5 mg 05/26/20 01:27 Albuterol 2.5 Mg/3 Ml Nebu IH Q4HRT PRN Shortness Of Breath Aspirin 81 mg 05/26/20 10:00 05/29/20 11:05 Aspirin 81 Mg Tab Chew PO 81 mg QDAY CAMMIE Administration Carvedilol 3.125 mg 05/26/20 08:00 05/29/20 11:06 Carvedilol 3.125 Mg Tab PO 3.125 mg BID@0800,1700 CAMMIE Administration Enoxaparin Sodium 40 mg 05/26/20 22:00 05/28/20 22:08 Enoxaparin 40 Mg/0.4 Ml Inj SUB-Q 40 mg QDAY@2200 CAMMIE Administration Protocol Furosemide 40 mg 05/26/20 06:00 05/29/20 05:54 Furosemide 40 Mg/4 Ml Inj IV 40 mg BID@0600,1800 CAMMIE Administration Levofloxacin/Dextrose 750 mg in 150 mls @ 100 mls/hr 05/26/20 20:00 05/28/20 20:43 Levaquin 750mg/150ml IV 05/30/20 21:29 100 mls/hr Q24H CAMMIE Administration Protocol Lisinopril 10 mg 05/26/20 10:00 05/29/20 11:06 Lisinopril 10 Mg Tab PO 10 mg QDAY CAMMIE Administration Methylprednisolone Sodium Succinate 60 mg 05/28/20 14:14 05/29/20 05:54 Methylprednisolone Sod Succinate 125 Mg/2 Ml Inj IV 60 mg Q8HR CAMMIE Administration Metolazone 5 mg 05/28/20 11:00 05/29/20 11:05 Metolazone 5 Mg Tab PO 5 mg QDAY CAMMIE Administration Morphine Sulfate 2 mg 05/26/20 01:22 Morphine 2 Mg/1 Ml Inj IV Q5MIN PRN Chest Pain unrelieved by NTG Nitroglycerin 0.4 mg 05/26/20 01:22 Nitroglycerin 0.4 Mg Tab Subl SL .Q5MIN PRN Chest Pain Potassium Chloride 10 meq 05/26/20 10:00 05/29/20 11:06 Potassium Chloride Er 10 Meq Tab PO 10 meq QDAY CAMMIE Administration <SUZETTE GUERRERO - Last Filed: 05/30/20 11:35> Assessment and Plan Assessment and plan: I did not personally evaluate the patient but reviewed chart and provided virtual support to [employer] helping with surge of patients due to covid pandemic Hospitalist Physical - Constitutional Vitals: Temp Pulse Resp BP Pulse Ox 98.4 F 96 H 20 132/82 92 05/30/20 08:52 05/30/20 08:52 05/30/20 05:27 05/30/20 08:52 05/30/20 08:52 HEART Score - HEART Score Troponin: Troponin T < 0.010 ng/mL (0.00-0.029) 05/25/20 20:40 Results - Labs CBC & Chem 7: 05/25/20 17:38 05/30/20 08:16 Labs: Laboratory Last Values WBC 7.5 K/mm3 (4.5-11.0) 05/25/20 17:38 RBC 6.27 M/mm3 (3.65-5.03) H 05/25/20 17:38 Hgb 14.3 gm/dl (11.8-15.2) 05/25/20 17:38 Hct 48.9 % (35.5-45.6) H 05/25/20 17:38 MCV 78 fl (84-94) L 05/25/20 17:38 MCH 23 pg (28-32) L 05/25/20 17:38 MCHC 29 % (32-34) L 05/25/20 17:38 RDW 22.9 % (13.2-15.2) H 05/25/20 17:38 Plt Count 416 K/mm3 (140-440) 05/25/20 17:38 Lymph % (Auto) 12.0 % (13.4-35.0) L 05/25/20 17:38 [place]oup % (Auto) 12.2 % (0.0-7.3) H 05/25/20 17:38 Eos % (Auto) 1.1 % (0.0-4.3) 05/25/20 17:38 Baso % (Auto) 0.8 % (0.0-1.8) 05/25/20 17:38 Lymph # (Auto) 0.9 K/mm3 (1.2-5.4) L 05/25/20 17:38 [place] # (Auto) 0.9 K/mm3 (0.0-0.8) H 05/25/20 17:38 Eos # (Auto) 0.1 K/mm3 (0.0-0.4) 05/25/20 17:38 Baso # (Auto) 0.1 K/mm3 (0.0-0.1) 05/25/20 17:38 Seg Neutrophils % 73.9 % (40.0-70.0) H 05/25/20 17:38 Seg Neutrophils # 5.5 K/mm3 (1.8-7.7) 05/25/20 17:38 PT 13.9 Sec. (12.2-14.9) 05/25/20 17:38 INR 1.08 (0.87-1.13) 05/25/20 17:38 APTT 26.3 Sec. (24.2-36.6) 05/25/20 17:38 D-Dimer 545.69 ng/mlDDU (0-234) H 05/26/20 01:16 ABG pH 7.314 pH Units (7.350-7.450) L 05/29/20 10:00 POC ABG pCO2 102.0 mmHg (32.0-48.0) H 05/26/20 11:21 ABG pCO2 99.7 mm Hg 05/29/20 10:00 POC ABG pO2 39.3 mmHg (83-108) L 05/26/20 11: ABG pO2 77.1 mm Hg (80.0-90.0) L 05/29/20 10:00 POC ABG HCO3 41.0 05/26/20 11: ABG HCO3 49.5 mmol/L (20.0-26.0) H 05/29/20 10:00 ABG O2 Saturation 94.8 % (95.0-99.0) L 05/29/20 10:00 ABG O2 Content 18.4 (0.0-44) 05/29/20 10:00 POC ABG Base Excess 8.5 05/26/20 11: ABG Base Excess 17.8 mmol/L (-2.0-3.0) H 05/29/20 10:00 ABG Hemoglobin 14.3 gm/dl (14.0-18.0) 05/29/20 10:00 ABG Oxyhemoglobin 66.4 (94-98) L 05/26/20 11:21 ABG Carboxyhemoglobin 3.2 % (0.0-5.0) 05/29/20 10:00 ABG Methemoglobin 0.6 % (0.0-1.5) 05/29/20 10:00 ABG Sodium 143.3 mmol/L (136.0-145.0) 05/26/20 11: ABG Potassium 4.1 mmol/L (3.40-4.50) 05/26/20 11:21 ABG Chloride 94.0 mmol/L (98-107) L 05/26/20 11:21 ABG Glucose 111 mg/dL (65-95) H 05/26/20 11:21 Oxyhemoglobin 91.3 % (95.0-99.0) L 05/29/20 10:00 Carboxyhemoglobin 2.3 (0.5-1.5) H 05/26/20 11: FiO2 32 % 05/29/20 10:00 Sodium 143 mmol/L (137-145) 05/30/20 08:16 Potassium 4.1 mmol/L (3.6-5.0) 05/30/20 08:16 Chloride 88.3 mmol/L (98-107) L 05/30/20 08:16 Carbon Dioxide 55 mmol/L (22-30) H* D 05/30/20 08:16 Anion Gap 4 mmol/L 05/30/20 08:16 BUN 22 mg/dL (9-20) H 05/30/20 08:16 Creatinine 0.9 mg/dL (0.8-1.3) 05/30/20 08:16 Estimated GFR > 60 ml/min 05/30/20 08:16 BUN/Creatinine Ratio 24 % 05/30/20 08:16 Glucose 90 mg/dL (75-100) 05/30/20 08:16 Hemoglobin A1c 6.1 % (4-6) H 05/26/20 02:06 Lactic Acid 1.00 mmol/L (0.7-2.0) 05/26/20 01:16 Calcium 9.5 mg/dL (8.4-10.2) 05/30/20 08:16 Ferritin 26.5 ng/mL (30.0-300.0) L 05/26/20 01:16 Total Bilirubin 0.50 mg/dL (0.1-1.2) 05/25/20 17:38 AST 23 units/L (5-40) 05/25/20 17:38 ALT 28 units/L (7-56) 05/25/20 17:38 Alkaline Phosphatase 85 units/L (35-129) 05/25/20 17:38 Lactate Dehydrogenase 240 units/L (91-180) H 05/26/20 01:16 Troponin T < 0.010 ng/mL (0.00-0.029) 05/25/20 20:40 C-Reactive Protein 1.00 mg/dL (0.00-1.30) 05/26/20 01:16 NT-Pro-B Natriuret Pep 1338 pg/mL (0-450) H 05/25/20 17:38 Total Protein 5.7 g/dL (6.3-8.2) L 05/25/20 17:38 Albumin 3.0 g/dL (3.9-5) L 05/25/20 17:38 Albumin/Globulin Ratio 1.1 % 05/25/20 17:38 Procalcitonin 0.12 ng/mL (<0.15) 05/26/20 01:16 Arterial Blood Glucose 111 mg/dL (65-95) H 05/26/20 11:21 Arterial Blood Ionized Calcium 4.8 mg/dL (4.6-5.3) 05/26/20 11:21 Urine Color Yellow (Yellow) 05/26/20 Unknown Urine Turbidity Clear (Clear) 05/26/20 Unknown Urine pH 6.0 (5.0-7.0) 05/26/20 Unknown Ur Specific [place] 1.017 (1.003-1.030) 05/26/20 Unknown Urine Protein 100 mg/dl mg/dL (Negative) 05/26/20 Unknown Urine Glucose (UA) Neg mg/dL (Negative) 05/26/20 Unknown Urine Ketones Neg mg/dL (Negative) 05/26/20 Unknown Urine Blood Neg (Negative) 05/26/20 Unknown Urine Nitrite Neg (Negative) 05/26/20 Unknown Urine Bilirubin Neg (Negative) 05/26/20 Unknown Urine Urobilinogen 2.0 mg/dL (<2.0) 05/26/20 Unknown Ur Leukocyte Esterase Neg (Negative) 05/26/20 Unknown Urine WBC (Auto) 4.0 /HPF (0.0-6.0) 05/26/20 Unknown Urine RBC (Auto) 1.0 /HPF (0.0-6.0) 05/26/20 Unknown U Epithel Cells (Auto) < 1.0 /HPF (0-13.0) 05/26/20 Unknown Hyaline Casts 14 /LPF 05/26/20 Unknown Urine Mucus Few /HPF 05/26/20 Unknown Coronavirus (PCR) Negative (Negative) 05/26/20 08:52 Microbiology: Microbiology 05/26/20 02:06 Peripheral/Venous Blood Culture - Preliminary NO GROWTH AFTER 4 DAYS 05/26/20 01:16 Peripheral/Venous Blood Culture - Preliminary NO GROWTH AFTER 4 DAYS - Diagnostic Impressions Diagnostic Impressions: Echocardiogram 05/26/20 01:24 Transthoracic Echocardiogram Indication: Dyspnea BP: 174/92 HR: 97 Conclusions *The left ventricular chamber size is normal. *Mild concentric left ventricular hypertrophy is observed. *The estimated ejection fraction is 55-60%. *There is septal flattening of the interventricular septum consistent with right ventricular volume or pressure overload. *The left atrial chamber size is normal. *The right ventricle is moderately dilated. *The right ventricular global systolic function is mildly reduced. *The right atrium is moderately dilated. *The right ventricular systolic pressure is calculated at 67 mmHg. *The inferior vena cava is dilated. *There is less than 50% respiratory change in the inferior vena cava dimension. Findings Left Ventricle: The left ventricular chamber size is normal. Mild concentric left ventricular hypertrophy is observed. Global left ventricular systolic function is normal. The estimated ejection fraction is 55-60%. There is septal flattening of the interventricular septum consistent with right ventricular volume or pressure overload. Normal left ventricular diastolic filling is observed. Abnormal left ventricular diastolic filling is observed, consistent with impaired relaxation. Left Atrium: The left atrial chamber size is normal. Right Ventricle: The right ventricle is moderately dilated. The right ventricular global systolic function is mildly reduced. Right Atrium: The right atrium is moderately dilated. Aortic Valve: There is no evidence of aortic valve thickening. There is no evidence of aortic regurgitation. Mitral Valve: The mitral valve leaflets are mildly thickened. There is trace of mitral regurgitation. Tricuspid Valve: The tricuspid valve leaflets are normal. There is mild tricuspid regurgitation. The right ventricular systolic pressure is calculated at 67 mmHg. Pulmonic Valve: There is no evidence of pulmonic valve thickening. There is trace pulmonic regurgitation. Pericardium: There is no pericardial effusion. Aorta: The aorta appears normal. Venous: The inferior vena cava is dilated. There is less than 50% respiratory change in the inferior vena cava dimension. Measurements Chambers 2D Name Value Normal Range IVSd (2D) 1.11 cm (0.6 - 1.1) LVPWd (2D) 1.2 cm (0.6 - 1.1) LVIDd (2D) 4.49 cm (3.7 - 5.6) LVIDs (2D) 3.08 cm (2 - 3.8) LV FS (2D) 31.42 % - EF Teichholz (2D) 59.45 % - Ao root diameter (2D) 3.28 cm (2 - 3.7) Volumes/Mass Name Value Normal Range LA ESV SP 4CH (A/L) 44.85 ml - LA ESV SP 2CH (A/L) 98.09 ml - LA ESV BP (A/L) 70.22 ml - LA ESV BP (A/L) index 24.9 ml/m2 - LA ESV SP 4CH (MOD) 41.98 ml - LA ESV SP 2CH (MOD) 92.48 ml - LA ESV BP (MOD) 65.91 ml - LA ESV BP (MOD) index 23.37 ml/m2 - Diastolic/Systolic Function Name Value Normal Range MV E-wave Vmax 1 m/sec - MV deceleration time 126.22 msec - MV A-wave Vmax 0.51 m/sec - MV E:A ratio 1.98 ratio - Aortic Valve Name Value Normal Range AV Vmax 1.89 m/sec - AV VTI 28.63 cm - AV peak gradient 14.21 mmHg - AV mean gradient 6.71 mmHg - LVOT diameter 2.34 cm - LVOT Vmax 1.61 m/sec - LVOT VTI 25.94 cm - LVOT peak gradient 10.37 mmHg - LVOT mean gradient 5.24 mmHg - SV LVOT 111.81 ml - FERNANDO (continuity Vmax) 3.68 cm2 - FERNANDO (continuity VTI) 3.91 cm2 - Ascending Ao 3.8 cm - Tricuspid Valve Name Value Normal Range TR Vmax 3.61 m/sec - TR peak gradient 52 mmHg - RAP 15 mmHg - RVSP 67 mmHg - IVC diameter 3.48 cm (1.2 - 2.3) Pulmonic Valve/Qp:Qs Name Value Normal Range PV Vmax 0.77 m/sec - PV peak gradient 2.37 mmHg - LA end-diastolic Vmax 1.2 m/sec - PV acceleration time 72.31 msec - Elliott/IV: Voiding Method Toilet IV Catheter Type [Left Hand] INT / Saline Lock IV Catheter Type [Left INT / Saline Lock Antecubital] Active Medications - Current Medications Current Medications: Generic Name Dose Route Start Last Admin Trade Name Freq PRN Reason Stop Dose Admin Albuterol 2.5 mg 05/26/20 01:27 Albuterol 2.5 Mg/3 Ml Nebu IH Q4HRT PRN Shortness Of Breath Aspirin 81 mg 05/26/20 10:00 05/30/20 10:26 Aspirin 81 Mg Tab Chew PO 81 mg QDAY CAMMIE Administration Carvedilol 3.125 mg 05/26/20 08:00 05/30/20 10:26 Carvedilol 3.125 Mg Tab PO 3.125 mg BID@0800,1700 [facility] Administration Enoxaparin Sodium 40 mg 05/26/20 22:00 05/29/20 23:25 Enoxaparin 40 Mg/0.4 Ml Inj SUB-Q 40 mg QDAY@2200 CAMMIE Administration Protocol Furosemide 40 mg 05/26/20 06:00 05/30/20 07:22 Furosemide 40 Mg/4 Ml Inj IV 40 mg BID@0600,1800 [facility] Administration Levofloxacin/Dextrose 750 mg in 150 mls @ 100 mls/hr 05/26/20 20:00 05/29/20 23:23 Levaquin 750mg/150ml IV 05/30/20 21:29 100 mls/hr Q24H [facility] Administration Protocol Lisinopril 10 mg 05/26/20 10:00 05/30/20 10:25 Lisinopril 10 Mg Tab PO 10 mg QDAY [facility] Administration Methylprednisolone Sodium Succinate 60 mg 05/28/20 14:14 05/30/20 07:23 Methylprednisolone Sod Succinate 125 Mg/2 Ml Inj IV 60 mg Q8HR [facility]E Administration Metolazone 5 mg 05/28/20 11:00 05/30/20 10:26 Metolazone 5 Mg Tab PO 5 mg QDAY CAMMIE Administration Morphine Sulfate 2 mg 05/26/20 01:22 Morphine 2 Mg/1 Ml Inj IV Q5MIN PRN Chest Pain unrelieved by NTG Nitroglycerin 0.4 mg 05/26/20 01:22 Nitroglycerin 0.4 Mg Tab Subl SL .Q5MIN PRN Chest Pain Potassium Chloride 10 meq 05/26/20 10:00 05/30/20 10:26 Potassium Chloride Er 10 Meq Tab PO 10 meq QDAY CAMMIE Administration
--- NOTE | 2020-05-29 15:47 | Progress Note ---
Assessment and Plan Acute exacerbation CHF Acute hypoxemic respiratory failure PUI COVID-19 HTN Asthma Obesity - advised compliance with oxygen and BIPAP - stressed need for outpatient sleep clinic f/up - pulmonary HTN w/up to be completetd outpatient - gentle diuresis (avoid IVVD as right ventricle partially reliant on starling forces at this point) - continue NIV scheduled with prn daytime use - continue care as below otherwise; - continue to wean supplemental oxygen to keep O2 sats > 90% - prn Bronchodilators (JANETH) with pulm hygiene per RT - continue systemic steroids with quick taper (tapered to solumedrol 60 mg IV q8h) - continue diuresis re: HFpEF - monitor electrolytes, avoid nephrotoxins, renally dose all medications - mobility protocols to prevent pressure ulcers - PT/OT as tolerated - prn analgesia per pain score - accuchecks with glycemic control per SSI for target blood glucose < 180 mg/dL - Smoking abstinence counseled at the bedside - weight loss / lifestyle change counseling - home oxygen evaluation at discharge - GI & VTE prophylaxis - Flu & pneumovax per protocol - Pulmonary out patient follow up for PFTs and optimization of respiratory status - continue other care per attending / other consultants ... re-evaluate in am & prn Subjective Date of service: 05/29/20 Principal diagnosis: AE-CHF; Ac hypoxemic resp failure; PUI COVID-19; HTN; Asthma; Obesity Interval history: Patient is seen today for: Acute exacerbation CHF; Acute hypoxemic respiratory failure; PUI COVID-19; HTN; Asthma; Obesity Seen and examined at bedside; 24hour events reviewed; nursing and respiratory care staff consulted; no adverse overnight events reported to me; resting peacefully in bed; denies chest pains or palpitations; No N/V/F/C; remains on supplemental oxygen Objective Vital Signs - 12hr 05/29/20 05/29/20 05/29/20 05:46 08:59 09:03 Temperature 98.0 F Pulse Rate 104 H Respiratory 20 18 18 Rate Blood Pressure 105/67 O2 Sat by Pulse 56 L 100 100 Oximetry Constitutional: no acute distress, lethargic (somnolent really today), other (Morbidly Obese middle aged male with normal respiratory effort at rest) Eyes: non-icteric ENT: oropharynx moist, other (mallampati 4) Neck: supple, no JVD, other (large circumference) Effort: normal Ascultation: Bilateral: clear, diminished breath sounds Percussion: Bilateral: not dull Cardiovascular: regular rate and rhythm Gastrointestinal: normoactive bowel sounds, soft, non-tender, non-distended (protuberant) Integumentary: normal Extremities: no cyanosis, pulses normal, no ischemia or petechiae, edema (2+) Neurologic: normal mental status, non-focal exam (grossly), pupils equal and round, CN II-XII normal, motor strength normal and, other (somnolent to lethargic) Psychiatric: mood appropriate, affect normal CBC and BMP: 05/25/20 17:38 05/30/20 08:16 ABG, PT/INR, D-dimer: ABG ABG pH 7.314 pH Units (7.350-7.450) L 05/29/20 10:00 POC ABG pCO2 102.0 mmHg (32.0-48.0) H 05/26/20 11:21 ABG pCO2 99.7 mm Hg 05/29/20 10:00 POC ABG pO2 39.3 mmHg (83-108) L 05/26/20 11:21 ABG pO2 77.1 mm Hg (80.0-90.0) L 05/29/20 10:00 POC ABG HCO3 41.0 05/26/20 11:21 ABG O2 Saturation 94.8 % (95.0-99.0) L 05/29/20 10:00 PT/INR, D-dimer PT 13.9 Sec. (12.2-14.9) 05/25/20 17:38 INR 1.08 (0.87-1.13) 05/25/20 17:38 D-Dimer 545.69 ng/mlDDU (0-234) H 05/26/20 01:16 Abnormal lab findings: Abnormal Labs 05/25/20 05/25/20 05/26/20 17:38 17:38 01:16 RBC 6.27 H Hct 48.9 H MCV 78 L MCH 23 L MCHC 29 L RDW 22.9 H Lymph % (Auto) 12.0 L [place] % (Auto) 12.2 H Lymph # (Auto) 0.9 L [place] # (Auto) 0.9 H Seg Neutrophils % 73.9 H D-Dimer 545.69 H ABG pH POC ABG pCO2 POC ABG pO2 ABG pO2 ABG HCO3 ABG O2 Saturation ABG Base Excess ABG Hemoglobin ABG Oxyhemoglobin ABG Chloride ABG Glucose Oxyhemoglobin Carboxyhemoglobin Chloride Carbon Dioxide 39 H BUN Glucose 101 H Hemoglobin A1c Calcium 8.1 L Ferritin Lactate Dehydrogenase NT-Pro-B Natriuret Pep 1338 H Total Protein 5.7 L Albumin 3.0 L Arterial Blood Glucose 05/26/20 05/26/20 05/26/20 01:16 01:16 02:06 RBC Hct MCV MCH MCHC RDW Lymph % (Auto) [place] % (Auto) Lymph # (Auto) [place] # (Auto) Seg Neutrophils % D-Dimer ABG pH POC ABG pCO2 POC ABG pO2 ABG pO2 ABG HCO3 ABG O2 Saturation ABG Base Excess ABG Hemoglobin ABG Oxyhemoglobin ABG Chloride ABG Glucose Oxyhemoglobin Carboxyhemoglobin Chloride Carbon Dioxide BUN Glucose Hemoglobin A1c 6.1 H Calcium Ferritin 26.5 L Lactate Dehydrogenase 240 H NT-Pro-B Natriuret Pep Total Protein Albumin Arterial Blood Glucose 05/26/20 05/27/20 05/28/20 11:21 18:55 07:42 RBC Hct MCV MCH MCHC RDW Lymph % (Auto) [place] % (Auto) Lymph # (Auto) [place] # (Auto) Seg Neutrophils % D-Dimer ABG pH 7.222 L 7.248 L POC ABG pCO2 102.0 H POC ABG pO2 39.3 L ABG pO2 ABG HCO3 30.9 H ABG O2 Saturation ABG Base Excess ABG Hemoglobin 12.1 L ABG Oxyhemoglobin 66.4 L ABG Chloride 94.0 L ABG Glucose 111 H Oxyhemoglobin 91.5 L Carboxyhemoglobin 2.3 H Chloride 96.0 L Carbon Dioxide 42 H* BUN Glucose 109 H Hemoglobin A1c Calcium Ferritin Lactate Dehydrogenase NT-Pro-B Natriuret Pep Total Protein Albumin Arterial Blood Glucose 111 H 05/29/20 05/29/20 06:12 10:00 RBC Hct MCV MCH MCHC RDW Lymph % (Auto) [place] % (Auto) Lymph # (Auto) [place] # (Auto) Seg Neutrophils % D-Dimer ABG pH 7.314 L POC ABG pCO2 POC ABG pO2 ABG pO2 77.1 L ABG HCO3 49.5 H ABG O2 Saturation 94.8 L ABG Base Excess 17.8 H ABG Hemoglobin ABG Oxyhemoglobin ABG Chloride ABG Glucose Oxyhemoglobin 91.3 L Carboxyhemoglobin Chloride 94.0 L Carbon Dioxide 46 H* BUN 26 H Glucose 122 H Hemoglobin A1c Calcium Ferritin Lactate Dehydrogenase NT-Pro-B Natriuret Pep Total Protein Albumin Arterial Blood Glucose Allied health notes reviewed: nursing
[2020-05-29] MEDS: ENOXAPARIN 40 MG/0.4 ML INJ SUB-Q SCH (23:25)
[2020-05-30] MEDS: FUROSEMIDE 40 MG/4 ML INJ IV SCH (07:22)
[2020-05-30] MEDS: methylPREDNISolone Sod Succinate 125 MG/2 ML INJ IV SCH (07:23)
[2020-05-30 09:07] LABS: BUN/Creatinine Ratio 24; Blood Urea Nitrogen 22 mg/dL (9-20); Calcium 9.5 mg/dL (8.4-10.2); Hemolysis Index 10
--- NOTE | 2020-05-30 10:01 | Discharge Summary ---
Providers - Providers Date of Admission: 05/26/20 18:20 Attending physician: SUZETTE GUERRERO MD 05/27/20 07:50 Consult to Physician [CONS] Routine Comment: Consulting Provider: NAINA LIU Physician Instructions: Reason For Exam: Hypercapenic respiratory failure 05/27/20 07:52 Consult to Physician [CONS] Routine Comment: Consulting Provider: HAILEE POSADA Physician Instructions: Reason For Exam: chf Hospitalization Condition: Stable Hospital course: 45-year-old -[place] male recently diagnosed with CHF and history of hypertension, and asthma who presents to [facility] ED with complaints of shortness of breath and worsening lower extremity edema extending up to abdomen x3 to 4 days. This patient is a [facility] patient. Dr. Lott at [facility] was contacted by ED physician who has agreed to this admission. Review of chart shows patient presented to the ED on 05/07/2020 with complaints of testicular pain and testicular edema. He was noted to have an elevated BNP subsequently transferred to [facility] for further evaluation and treatment. Patient's reports since being discharged from [facility] approximately 1 week ago he has been experiencing worsening shortness of breath. He is unable to walk more than a few feet without becoming short of breath and needing to take a rest. Additionally patient complains of increased weight gain (he is not able to provide exact weight) since being discharged despite being compliant with meds. He states that he has a follow-up appointment with cardiology at [facility] scheduled for 06/02/2020. His symptoms were not improving and he could not wait until his scheduled appointment to seek medical attention. Denies chest pain, fever, chills, headache, palpitations, cough, sputum production, loss of smell, loss of taste, abdominal pain, or recent sick contacts 05/27: Continue Lasix. Patient still significantly hypoxic will need to continue on oxygen. Counseling provided to the patient. Pulmonary consulted senior treasury analyst consulted. 05/28: We will continue aggressive diuresis management per senior treasury analyst and cellophane wrapping examiner. Encourage BiPAP at night which he has been using. He is still n ot compliant with his oxygen he verbalized understanding. He still has orthopnea he sleeps in the chair due to this. Cardiology on echo reviewed- EF 55-60%, mild LVH, RV volume overload, RV mod dilated, RV systolic function mildly reduced, RA mod dilated, RVSP 67mmHg. Covid testing was negative 1/2: Home oxygen eval prior to discharge if ok with Pulmonary and Cardiology. Counselling provided. Extensively advised about complaince and the severity of his clinical condition. He verbalized understanding. Acute exacerbation CHF -Recently diagnosed (approx 2weeks ago) -BNP elevated at 1338 -Troponin negative x2 -CXR shows mild cardiomegaly and mild pulmonary edema -Patient has anasarca -Start IV Lasix twice a day -Echo pending (pt is uncertain if Echo was done at [facility], if able to obtain Echo results, september d/c pending Echo) -On ASA, BB, ELIJAH Acute hypoxic respiratory failure -No Baseline home oxygen requirements -Saturation of 74% on room air -ABG pending -Currently on supplemental -Monitor saturations -Continue supplemental oxygen wean as tolerated Suspected Covid infection-ruled out -Given patient's presentation and recent hospitalization I am unable to rule out Covid at this time -D-dimer pending -Covid swab pending HTN -Monitor BP -On BB and ELIJAH Asthma -History of asthma -Albuterol as needed Obesity -BMI 49.8 -Diet and lifestyle modifications -May benefit from OP weight mgmt program Disposition: [id number] TO HOME OR SELFCARE Core Measure Documentation - Palliative Care Palliative Care/ Comfort Measures: Not Applicable - Core Measures Any of the following diagnoses?: heart failure - Heart Failure Discharge Requirements ELIJAH/ARB for LVSD if EF <40%: Yes Beta gina at discharge: Yes Exam - Constitutional Vitals: Temp Pulse Resp BP Pulse Ox 98.4 F 96 H 20 132/82 92 05/30/20 08:52 05/30/20 08:52 05/30/20 05:27 05/30/20 08:52 05/30/20 08:52 Plan Activity: advance as tolerated, fall precautions Diet: low fat, low salt Special Instructions: restrict fluid intake to (1000CC/DAY), record daily weights, record daily BP diary Follow up with: SHAHLA CLIFFORD [Other] - 3-5 Days INDER PRYOR MD [Staff Physician] - 7 Days AUGUSTINE ANDREWS MD [Staff Physician] - 7 Days Prescriptions: Aspirin [Aspirin BABY CHEW TAB] 81 mg PO QDAY #30 tab.chew carvediloL [Coreg] 3.125 mg PO BID #60 Potassium Chloride [K-Dur] 10 meq PO QDAY #30 tablet Furosemide [Lasix TAB] 40 mg PO QDAY #30 Prednisone [predniSONE 10 mg (6-Day Pack, 21 Tabs)] 10 mg PO .TAPER #1 tab.ds.pk metOLazone [Zaroxolyn] 5 mg PO QDAY #30 tablet lisinopriL [Zestril TAB] 10 mg PO QDAY #30 tablet
[2020-05-30] MEDS: LISINOPRIL 10 MG TAB PO SCH (10:25)
[2020-05-30] MEDS: carvediloL 3.125 MG TAB PO SCH (10:26)
[2020-05-30] MEDS: ASPIRIN 81 MG TAB CHEW PO SCH (10:26)
[2020-05-30] MEDS: POTASSIUM CHLORIDE ER 10 MEQ TAB PO SCH (10:26)
[2020-05-30] MEDS: metOLazone 5 MG TAB PO SCH (10:26)
--- NOTE | 2020-05-30 12:14 | Progress Note ---
Assessment and Plan 45-year-old -[place] Citizen male recently diagnosed with CHF and history of hypertension, and asthma who presents to [facility] ED with complaints of shortness of breath and worsening lower extremity edema extending up to abdomen x3 to 4 days. This patient is a [facility] patient. Dr. Lott at [facility] was contacted by ED physician who has agreed to this admission. Patient presented to the ED on 05/07/2020 with complaints of testicular pain and testicular edema. He was noted to have an elevated BNP subsequently transferred to [facility] for further evaluation and treatment. Patient's reports since being discharged from [facility] approximately 1 week ago he has been experiencing worsening shortness of breath. He is unable to walk more than a few feet without becoming short of breath and needing to take a rest. Additionally patient complains of increased weight gain (he is not able to provide exact weight) since being discharged despite being compliant with meds. He states that he has a follow-up appointment with cardiology at [facility] scheduled for 06/02/2020. His symptoms were not improving and he could not wait until his scheduled appointment to seek medical attention. Denies chest pain, fever, chills, headache, palpitations, cough, sputum production, loss of smell, loss of taste, abdominal pain, or recent sick contacts Patients main complaint is shortness of breath and peripheral edema. Patient denies smoking, alcohol or drug abuse. Patient works at [employer]. No known drug allergies. patient not . Has no children. Patient Morbidly Obese. ABG ABG pH 7.222 (7.320-7.450) L 05/26/20 11:21 POC ABG pCO2 102.0 mmHg (32.0-48.0) H 05/26/20 11:21 POC ABG pO2 39.3 mmHg (83-108) L 05/26/20 11:21 POC ABG HCO3 41.0 05/26/20 11:21 On room air. Patient likely has Obesity hypoventilation. Recommend sleep study. Placing him on BIPAP. Patient suppose to be on 2 litres o2. patient not using his O2. Chest xray obtained 05/25/20 reported Mild cardiomegaly and mild interstitial pulmonary edema. Patient alert, awake and sitting by the side of the bed at this time. 05/30/20 Patient alert, awake. Patient is on 3 litres o2. O2 saturation 92%. Patient o2 saturation dropping with out O2. Recommend Home o2 3 litres via nasal canula. Recommend sleep study as out patient. Stress the importance using O2. Recommend to follow with his pulmonary and primary care as soon as possible after discharge. - Patient Problems (1) Respiratory failure Status: Acute Plan to address problem: BIPAP 20/8, FIO2 35%, Rate 20. O2 3 litres when he is not on BIPAP. Albuterol/atrovent aerosol treatments q 6 hours. Continue I/V solumedrol Continue S/C Lovenox. Continue levaquin. Recommend GI prophylaxis. (2) Asthma Status: Acute Plan to address problem: BIPAP 20/8, FIO2 35%, Rate 20. O2 3 litres when he is not on BIPAP. Albuterol/atrovent aerosol treatments q 6 hours. Continue I/V solumedrol Continue S/C Lovenox. Continue levaquin. (3) Acute heart failure with preserved ejection fraction (HFpEF) Status: Acute Plan to address problem: Management as per cardiology (4) Moderate to severe pulmonary hypertension Status: Acute Plan to address problem: Likely from secondary to respiratory and cardiac problems. Continue treat above conditions. (5) Morbid obesity Status: Chronic Plan to address problem: Recommend to loose weight Diet and exercise. Recommend sleep study as out patient. (6) Sleep apnea Status: Suspected Plan to address problem: Placing him on BIPAP 20/8, rate 20, FIO2 35%. (7) Post traumatic stress disorder (PTSD) Status: Acute Plan to address problem: Management as per primary care. Subjective Date of service: 05/30/20 Principal diagnosis: AE-CHF; Ac hypoxemic resp failure; PUI COVID-19; HTN; Asthma; Obesity Interval history: Patient alert, awake. Patient is on 3 litres o2. O2 saturation 92%. Patient o2 saturation dropping with out O2. Recommend Home o2 3 litres via nasal canula. Recommend sleep study as out patient. Stress the importance using O2. Recommend to follow with his pulmonary and primary care as soon as possible after discharge. Objective Vital Signs - 12hr 05/30/20 05/30/20 05/30/20 00:29 04:37 05:11 Temperature 98.0 F Pulse Rate 91 H Respiratory 20 20 Rate Blood Pressure 157/96 O2 Sat by Pulse 94 95 Oximetry 05/30/20 05/30/20 05:27 08:52 Temperature 99.2 F 98.4 F Pulse Rate 101 H 96 H Respiratory 20 Rate Blood Pressure 127/74 132/82 O2 Sat by Pulse 71 L 92 Oximetry Constitutional: no acute distress, alert, other (Morbidly Obese middle aged male with normal respiratory effort at rest) Eyes: non-icteric ENT: oropharynx moist, other (mallampati 4) Neck: supple, no JVD, other (large circumference) Effort: normal Ascultation: Bilateral: diminished breath sounds Percussion: Bilateral: not dull Cardiovascular: regular rate and rhythm Gastrointestinal: normoactive bowel sounds, soft, non-tender, non-distended (protuberant) Integumentary: normal Extremities: no cyanosis, pulses normal, no ischemia or petechiae, edema (2+) Neurologic: normal mental status, non-focal exam (grossly), pupils equal and round, CN II-XII normal, motor strength normal and, other (somnolent to lethargic) Psychiatric: mood appropriate, affect normal CBC and BMP: 05/25/20 17:38 05/30/20 08:16 ABG, PT/INR, D-dimer: ABG ABG pH 7.314 pH Units (7.350-7.450) L 05/29/20 10:00 POC ABG pCO2 102.0 mmHg (32.0-48.0) H 05/26/20 11:21 ABG pCO2 99.7 mm Hg 05/29/20 10:00 POC ABG pO2 39.3 mmHg (83-108) L 05/26/20 11:21 ABG pO2 77.1 mm Hg (80.0-90.0) L 05/29/20 10:00 POC ABG HCO3 41.0 05/26/20 11:21 ABG O2 Saturation 94.8 % (95.0-99.0) L 05/29/20 10:00 PT/INR, D-dimer PT 13.9 Sec. (12.2-14.9) 05/25/20 17:38 INR 1.08 (0.87-1.13) 05/25/20 17:38 D-Dimer 545.69 ng/mlDDU (0-234) H 05/26/20 01:16 Abnormal lab findings: Abnormal Labs 05/25/20 05/25/20 05/26/20 17:38 17:38 01:16 RBC 6.27 H Hct 48.9 H MCV 78 L MCH 23 L MCHC 29 L RDW 22.9 H Lymph % (Auto) 12.0 L [place] % (Auto) 12.2 H Lymph # (Auto) 0.9 L [place] # (Auto) 0.9 H Seg Neutrophils % 73.9 H D-Dimer 545.69 H ABG pH POC ABG pCO2 POC ABG pO2 ABG pO2 ABG HCO3 ABG O2 Saturation ABG Base Excess ABG Hemoglobin ABG Oxyhemoglobin ABG Chloride ABG Glucose Oxyhemoglobin Carboxyhemoglobin Chloride Carbon Dioxide 39 H BUN Glucose 101 H Hemoglobin A1c Calcium 8.1 L Ferritin Lactate Dehydrogenase NT-Pro-B Natriuret Pep 1338 H Total Protein 5.7 L Albumin 3.0 L Arterial Blood Glucose 05/26/20 05/26/20 05/26/20 01:16 01:16 02:06 RBC Hct MCV MCH MCHC RDW Lymph % (Auto) [place] % (Auto) Lymph # (Auto) [place] # (Auto) Seg Neutrophils % D-Dimer ABG pH POC ABG pCO2 POC ABG pO2 ABG pO2 ABG HCO3 ABG O2 Saturation ABG Base Excess ABG Hemoglobin ABG Oxyhemoglobin ABG Chloride ABG Glucose Oxyhemoglobin Carboxyhemoglobin Chloride Carbon Dioxide BUN Glucose Hemoglobin A1c 6.1 H Calcium Ferritin 26.5 L Lactate Dehydrogenase 240 H NT-Pro-B Natriuret Pep Total Protein Albumin Arterial Blood Glucose 05/26/20 05/27/20 05/28/20 11:21 18:55 07:42 RBC Hct MCV MCH MCHC RDW Lymph % (Auto) [place] % (Auto) Lymph # (Auto) [place] # (Auto) Seg Neutrophils % D-Dimer ABG pH 7.222 L 7.248 L POC ABG pCO2 102.0 H POC ABG pO2 39.3 L ABG pO2 ABG HCO3 30.9 H ABG O2 Saturation ABG Base Excess ABG Hemoglobin 12.1 L ABG Oxyhemoglobin 66.4 L ABG Chloride 94.0 L ABG Glucose 111 H Oxyhemoglobin 91.5 L Carboxyhemoglobin 2.3 H Chloride 96.0 L Carbon Dioxide 42 H* BUN Glucose 109 H Hemoglobin A1c Calcium Ferritin Lactate Dehydrogenase NT-Pro-B Natriuret Pep Total Protein Albumin Arterial Blood Glucose 111 H 05/29/20 05/29/20 05/30/20 06:12 10:00 08:16 RBC Hct MCV MCH MCHC RDW Lymph % (Auto) [place] % (Auto) Lymph # (Auto) [place] # (Auto) Seg Neutrophils % D-Dimer ABG pH 7.314 L POC ABG pCO2 POC ABG pO2 ABG pO2 77.1 L ABG HCO3 49.5 H ABG O2 Saturation 94.8 L ABG Base Excess 17.8 H ABG Hemoglobin ABG Oxyhemoglobin ABG Chloride ABG Glucose Oxyhemoglobin 91.3 L Carboxyhemoglobin Chloride 94.0 L 88.3 L Carbon Dioxide 46 H* 55 H* D BUN 26 H 22 H Glucose 122 H Hemoglobin A1c Calcium Ferritin Lactate Dehydrogenase NT-Pro-B Natriuret Pep Total Protein Albumin Arterial Blood Glucose
[2020-05-30 13:17] VITALS: BP 143/78
== END 2020-05-30 17:44 | disposition home or self-care (01) | DRG 291 ==
LOC: ED 17:05 → 3A 05-26 01:14 → OBSVTOIN 05-26 18:20 → 4A 05-26 20:04
PROVIDERS: ADMIT Internal Medicine Geriatric Medicine; ATTEND Internal Medicine
PROC: 4A033R1 Measurement of Arterial Saturation, Peripheral, Percutaneous Approach (ICD-10-PCS; principal; 2020-05-26)
PROC: 5A09357 Assistance with Respiratory Ventilation, Less than 24 Consecutive Hours, Continuous Positive Airway Pressure (ICD-10-PCS; 2020-05-26)
DX: I11.0 Hypertensive heart disease with heart failure (principal); J96.01 Acute respiratory failure with hypoxia; I50.31 Acute diastolic (congestive) heart failure; Z68.42 Body mass index [BMI] 45.0-49.9, adult; Z20.828 Contact with and (suspected) exposure to other viral communicable diseases; J45.909 Unspecified asthma, uncomplicated; E66.01 Morbid (severe) obesity due to excess calories; I27.20 Pulmonary hypertension, unspecified; G47.33 Obstructive sleep apnea (adult) (pediatric); Z91.14 Patient's other noncompliance with medication regimen; F43.10 Post-traumatic stress disorder, unspecified; I27.81 Cor pulmonale (chronic)
CPT/HCPCS: 36415; 36600; 71046; 80048; 80053; 81001; 82140; 82728; 82803; 82805; 82947; 83036; 83615; 83880; 84145; 84484; 85025; 85379; 85610; 85730; 86140; 87040; 93005; 93306; 94640; 94660; 94760; 96365; 96375; G0378; J1650; J1940; J1956; J2543; J2930; U0003

== ENCOUNTER 2020-12-02 13:19 | Emergency (ER) | payer OTHER ==
--- NOTE | 2020-12-02 13:43 | Emergency Department Report ---
Blank Doc - Documentation Documentation: 45-year-old male that presents with chest tightness, shortness of breath and b ilateral leg swelling. Patient placed on 2 L nasal cannula. Sats increased to high 90S. History of CHF 1- This is a initial triage assessment/medical screening only. Full assessment and work-up will be completed once the patient is in proper hospital gown, ED bed and in a private room setting. This initial assessment/diagnostic orders/clinical plan/ treatment(s) is/are subject to change based on pt's health status, clinical progression and re-assessment by fellow clinical providers in the ED. Further treatment and workup at subsequent clinical providers discretion. Patient/guardians urged not to elope from ED as their condition may be serious if not clinically assessed and managed. 2-cardiac work-up
--- NOTE | 2020-12-02 14:11 | XRay Report ---
CHEST 2 VIEWS INDICATION: Chest Pain. COMPARISON: 05/25/2020 FINDINGS: Support devices: None. Heart: Stable cardiomegaly. Lungs/Pleura: Increased interstitial markings. No significant infiltrate. No significant pleural ef fusion. IMPRESSION: Cardiomegaly with mild vascular congestion. Signer Name: Karl Tejeda MD Signed: 12/02/2020 2:07 PM Workstation Name: [id number]
[2020-12-02 14:21] LABS: Eosinophils % (Auto) 0.5 % (0.0-4.3); Monocytes % (Auto) 11.6 % (0.0-7.3)
[2020-12-02 14:32] LABS: INR 0.98 (0.87-1.13)
[2020-12-02 14:33] LABS: Partial Thromboplastin Time 25.1 Sec. (24.2-36.6)
[2020-12-02 14:42] LABS: Basophils % (Auto) 0.6 % (0.0-1.8); Lymphocytes # (Auto) 0.7 K/mm3 (1.2-5.4); Lymphocytes % (Auto) 8.3 % (13.4-35.0); Mean Corpuscular HGB Conc 30 % (32-34); Mean Corpuscular Volume 79 fl (84-94); Platelet Count 195 K/mm3 (140-440); Red Blood Count 6.52 M/mm3 (3.65-5.03)
[2020-12-02 14:44] LABS: Alanine Aminotransferase 42 units/L (7-56); BUN/Creatinine Ratio 17; Blood Urea Nitrogen 19 mg/dL (9-20); Hemolysis Index 8
[2020-12-02 14:46] LABS: Hematocrit 51.5 % (35.5-45.6); Hemoglobin 15.4 gm/dl (11.8-15.2); Red Cell Distribution Width 20.1 % (13.2-15.2)
[2020-12-02] MEDS ORDERED: FUROSEMIDE 40 MG/4 ML INJ IV ONE (15:57)
--- NOTE | 2020-12-02 16:03 | Emergency Department Report ---
HPI - General Chief Complaint: Dyspnea/Respdistress Time Seen by Provider: 12/02/20 13:36 - HPI HPI: Room 2 The patient is a 45-year-old male present with a chief complaint of shortness of breath. Patient denies chest pain or fever but states he has had an occasional productive cough for the past 3 weeks. Patient has a history of CHF and states he is on Lasix. Patient admits to bilateral lower extremity edema for 1 week. Patient denies ever having chest pain or pleurisy. ED Past Medical Hx - Past Medical History Previous Medical History?: Yes Hx Hypertension: Yes Hx Congestive Heart Failure: Yes Hx Asthma: Yes Additional medical history: Tetanus status 2 years - Surgical History Past Surgical History?: Yes Additional Surgical History: hernia repair - Family History Family history: no significant - Social History Smoking Status: Never Smoker Substance Use Type: None (Denies illicit drug use), Alcohol (Occasional) - Medications Home Medications: Home Medications Medication Instructions Recorded Confirmed Last Taken Type Albuterol Mdi (or & Nicu Only) 1 puff IH PRN PRN 05/27/20 05/27/20 Unknown History [ProAir HFA Inhaler] Aspirin [Aspirin BABY CHEW TAB] 81 mg PO QDAY #30 tab.chew 05/30/20 Unknown Rx Furosemide [Lasix TAB] 40 mg PO BID #60 tablet 05/30/20 Unknown Rx Potassium Chloride [K-Dur] 10 meq PO QDAY #30 tablet 05/30/20 Unknown Rx Prednisone [predniSONE 10 mg 10 mg PO .TAPER #1 tab.ds.pk 05/30/20 Unknown Rx (6-Day Pack, 21 Tabs)] carvediloL [Coreg] 3.125 mg PO BID #60 05/30/20 Unknown Rx lisinopriL [Zestril TAB] 10 mg PO QDAY #30 tablet 05/30/20 Unknown Rx metOLazone [Zaroxolyn] 5 mg PO QDAY #30 tablet 05/30/20 Unknown Rx ED Review of Systems ROS: Stated complaint: SHORTNESS OF BREATH Other details as noted in HPI Constitutional: denies: fever Eyes: denies: eye pain ENT: denies: throat pain Respiratory: shortness of breath, SOB with exertion Cardiovascular: dyspnea on exertion. denies: chest pain Endocrine: no symptoms reported Gastrointestinal: denies: abdominal pain Genitourinary: denies: dysuria Musculoskeletal: denies: back pain Neurological: denies: headache Physical Exam - Physical Exam Vital Signs: Vital Signs 12/02/20 12/02/20 13:34 15:49 Temperature 98.3 F Pulse Rate 98 H 98 H Respiratory 24 18 Rate Blood Pressure 151/84 144/92 [Right] O2 Sat by Pulse 94 95 Oximetry Physical Exam: GENERAL: The patient is well-developed well-nourished male lying on stretcher not appearing to be in acute distress. [] HEENT: Normocephalic. Atraumatic. Extraocular motions are intact. Patient has moist mucous membranes. NECK: Supple. Trachea midline CHEST/LUNGS: Diminished bilaterally. Faint crackle auscultated at left base HEART/CARDIOVASCULAR: Regular. There is no tachycardia. There is no gallop rub or murmur. ABDOMEN: Abdomen is soft, nontender. Patient has normal bowel sounds. There is no abdominal distention. SKIN: There is no rash. There is 2-3+ bilateral lower extremity pitting edema. There is no diaphoresis. NEURO: The patient is awake, alert, and oriented. The patient is cooperative. The patient has no focal neurologic deficits. The patient has normal speech. GCS 15 MUSCULOSKELETAL: There is no evidence of acute injury. ED Course Vital Signs 12/02/20 12/02/20 13:34 15:49 Temperature 98.3 F Pulse Rate 98 H 98 H Respiratory 24 18 Rate Blood Pressure 151/84 144/92 [Right] O2 Sat by Pulse 94 95 Oximetry - Consultations Consultation #1: 12/02/20 16:01 [facility] paged 12/02/20 16:17 Case discussed with [place] physician Dr. Avelar-we will attempt to arrange transfer to [facility] ED Medical Decision Making - Lab Data Result diagrams: 12/02/20 13:59 12/02/20 13:59 Laboratory Tests 12/02/20 12/02/20 12/02/20 13:59 13:59 13:59 WBC 8.6 RBC 6.52 H Hgb 15.4 H Hct 51.5 H MCV 79 L MCH 24 L MCHC 30 L RDW 20.1 H Plt Count 195 Lymph % (Auto) 8.3 L [place] % (Auto) 11.6 H Eos % (Auto) 0.5 Baso % (Auto) 0.6 Lymph # (Auto) 0.7 L [place] # (Auto) 1.0 H Eos # (Auto) 0.0 Baso # (Auto) 0.0 Seg Neutrophils % 81.9 H Seg Neutrophils # 7.1 PT 13.6 INR 0.98 APTT 25.1 D-Dimer Sodium 141 Potassium 3.3 L Chloride 93.8 L Carbon Dioxide 38 H Anion Gap 13 BUN 19 Creatinine 1.1 Estimated GFR > 60 BUN/Creatinine Ratio 17 Glucose 100 Calcium 8.0 L Total Bilirubin 0.60 AST 40 ALT 42 Alkaline Phosphatase 85 Troponin T < 0.010 NT-Pro-B Natriuret Pep 1374 H Total Protein 5.5 L Albumin 3.0 L Albumin/Globulin Ratio 1.2 Urine Color Urine Turbidity Urine pH Ur Specific [place] Urine Protein Urine Glucose (UA) Urine Ketones Urine Blood Urine Nitrite Urine Bilirubin Urine Urobilinogen Ur Leukocyte Esterase Urine WBC (Auto) Urine RBC (Auto) U Epithel Cells (Auto) Hyaline Casts 12/02/20 12/02/20 12/02/20 14:00 16:19 Unknown WBC RBC Hgb Hct MCV MCH MCHC RDW Plt Count Lymph % (Auto) [place] % (Auto) Eos % (Auto) Baso % (Auto) Lymph # (Auto) [place] # (Auto) Eos # (Auto) Baso # (Auto) Seg Neutrophils % Seg Neutrophils # PT INR APTT D-Dimer 206.2 Sodium Potassium Chloride Carbon Dioxide Anion Gap BUN Creatinine Estimated GFR BUN/Creatinine Ratio Glucose Calcium Total Bilirubin AST ALT Alkaline Phosphatase Troponin T < 0.010 NT-Pro-B Natriuret Pep Total Protein Albumin Albumin/Globulin Ratio Urine Color Straw Urine Turbidity Clear Urine pH 6.0 Ur Specific [place] 1.006 Urine Protein <15 mg/dl Urine Glucose (UA) Neg Urine Ketones Neg Urine Blood Sm Urine Nitrite Neg Urine Bilirubin Neg Urine Urobilinogen < 2.0 Ur Leukocyte Esterase Neg Urine WBC (Auto) < 1.0 Urine RBC (Auto) 1.0 U Epithel Cells (Auto) < 1.0 Hyaline Casts 1 - EKG Data -: EKG Interpreted by Me EKG shows normal: sinus rhythm Rate: normal - EKG Data When compared to previous EKG there are: previous EKG unavailable Interpretation: other (No ischemic changes seen) - Radiology Data Radiology results: report reviewed (Chest x-ray), image reviewed (Chest x-ray) interpreted by me: Chest [id number], cardiomegaly. No pneumothorax, no focal infiltrates [facility] [address] [place] [address] XRay Report Signed Patient: JEWELS LAUREN MR#: [id number] : [birth year] Acct:[id number] Age/Sex: 45 / M ADM Date: 12/02/20 Loc: ED Attending Dr: Ordering Physician: GURMEET HURTADO NP Date of Service: 12/02/20 Procedure(s): XR chest routine 2V Accession Number(s): [id number] cc: GURMEET HURTADO NP Fluoro Time In Minutes: CHEST 2 VIEWS INDICATION: Chest Pain. COMPARISON: 05/25/2020 FINDINGS: Support devices: None. Heart: Stable cardiomegaly. Lungs/Pleura: Increased interstitial markings. No significant infiltrate. No significant pleural effusion. IMPRESSION: Cardiomegaly with mild vascular congestion. Signer Name: Karl Tejeda MD Signed: 12/02/2020 2:07 PM Workstation Name: [email or web address] Transcribed By: ES Dictated By: Karl Tejeda MD Electronically Authenticated By: Karl Tejeda MD Signed Date/Time: 12/02/201406 DD/ 05 TD/TT: Print Cancel - Differential Diagnosis CHF exacerbation, pneumonia, bronchitis Critical care attestation.: If time is entered above; I have spent that time in minutes in the direct care of this critically ill patient, excluding procedure time. ED Disposition Clinical Impression: Hypoxia, CHF exacerbation Disposition: DC/TX-70 ANOTHER TYPE HLTHCARE Is pt being admited?: No Does the pt Need Aspirin: Yes Condition: Fair Time of Disposition: 18:20 (Awaiting transport)
[2020-12-02] MEDS ORDERED: POTASSIUM CHLORIDE ER 20 MEQ TAB PO ONE (16:13)
[2020-12-02 17:51] LABS: Bilirubin,Urine NEG (Negative); Blood,Urine SM (Negative); Color,Urine Straw (Yellow); Hyaline Casts,Urine 1 /LPF; Protein,Urine <15 mg/dL mg/dL (Negative); Urobilinogen,Urine < 2.0 mg/dL (<2.0); WBC,Urine < 1.0 /HPF (0.0-6.0)
--- NOTE | 2020-12-02 18:09 | Electrocardiograph Report ---
[facility] Test Date: 2020-12-02 Test Time: 13:47:14 Pat Name: JEWELS LAUREN Department: Room: Gender: M Service Order Dispatcher: PATRICIO : 1975 Requested By: GURMEET HURTADO Order Number: [id number] Reading MD: Kendra Mays Measurements Intervals [place] Rate: 97 P: 55 NE: 166 QRS: 41 QRSD: 78 T: -7 QT: 336 QTc: 428 Interpretive Statements Sinus rhythm Biatrial enlargement No previous ECG available for comparison Electronically Signed On 12-02-2020 18:09:01 EDT by Kendra Mays
[2020-12-02 20:59] VITALS: BP 155/74
== END 2020-12-02 20:57 | disposition other institution (70) ==
LOC: ED 13:19
DX: I11.0 Hypertensive heart disease with heart failure (principal); I50.9 Heart failure, unspecified; R09.02 Hypoxemia; J45.909 Unspecified asthma, uncomplicated; Z72.89 Other problems related to lifestyle; Z79.899 Other long term (current) drug therapy
CPT/HCPCS: 36415; 71046; 80053; 81001; 83880; 84484; 85025; 85379; 85610; 85730; 93005; 96374; 99285; J1940